=== PATIENT | male | born 1935 | race Caucasian/White ===

== ENCOUNTER 2017-04-08 09:13 | Outpatient (CLI) | payer MEDICARE ==
[2017-04-08 11:16] LABS: Hemoglobin 16.5 g/dL (14.0-18.0); Mean Corpuscular HGB CONC 35.1 g/dL (32.0-36.0); Mean Corpuscular Hemoglobin 34.6 pg (27.0-31.0); Mean Corpuscular Volume 98.6 fl (80.0-94.0); Mean Platelet Volume 6.8 fL (7.4-10.4); Platelet Count 171 thou/uL (130-400); Red Blood Cell (RBC) Count 4.77 mill/uL (4.70-6.10); White Blood Cell (WBC) Count 8.2 thou/uL (4.8-10.8)
[2017-04-08 11:20] LABS: Bilirubin Negative (Negative); Blood, Urine Negative (Negative); Clarity CLEAR (Clear); Glucose, Urine (Dipstick) Negative (Negative); Leukocyte Negative (Negative); Nitrite Negative (Negative); Protein, Urine (Dipstick) Negative (Neg-Trace); Specific Gravity, Urine 1.021 (1.002-1.036); Urobilinogen 0.2 mg/dL (0.2-1.0)
[2017-04-08 11:22] LABS: INR-International Normal Ratio 1.1; PTT 28.6 SEC (22.9-36.1); Prothrombin Time 14.2 SEC (12.0-14.7)
[2017-04-08 11:25] LABS: Anion Gap 16 mmol/L (10-20); BUN (Urea Nitrogen) 34 mg/dL (8.4-25.7); Bacteria/HPF None Seen HPF (None Seen); Calc. Creatinine Clearance 0 mL/min (70-130); Calcium 9.8 mg/dL (7.8-10.44); Carbon Dioxide 27 mmol/L (23-31); Chloride 104 mmol/L (98-107); Estimated GFR-MDRD 53; Glucose 117 mg/dL (83-110); Hyaline Casts/LPF 0-3 HYALINE CAST LPF (0-3 Hyaline); Potassium 4.1 mmol/L (3.5-5.1); RBC/HPF 0-3 HPF (0-3); Sodium 143 mmol/L (136-145); Squamous Epithelial None Seen HPF (0-3); WBC/HPF None Seen HPF (0-3)
--- NOTE | 2017-04-10 00:48 | EKG ---
Test Reason : Blood Pressure : / mmHG Vent. Rate : 054 BPM Atrial Rate : 054 BPM P-R Int : 174 ms QRS Dur : 108 ms QT Int : 450 ms P-R-T Axes : 059 066 003 degrees QTc Int : 426 ms Sinus bradycardia Anteroseptal infarct , age undetermined Abnormal ECG No previous ECGs available Confirmed by LUCAS EMMANUEL, DR. Fields ([id number]) on 04/10/2017 12:48:20 AM Referred By: PASTOR Confirmed By:DR. Diamond ZAVALA MD
== END 2017-04-08 09:14 | disposition home or self-care (01) ==
LOC: LABBT 09:13
PROVIDERS: ATTEND Urology
DX: Z01.818 Encounter for other preprocedural examination (principal); N40.1 Benign prostatic hyperplasia with lower urinary tract symptoms
CPT/HCPCS: 80048; 81001; 85027; 85610; 85730; 86850; 86900; 86901; 87086; 93005; 93010

== ENCOUNTER 2017-04-15 10:59 | Observation (INO) | payer MEDICARE ==
[2017-04-08 09:34] VITALS: BMI 30.2
[2017-04-15] MEDS ORDERED: Levofloxacin 500 mg/D5W 100 ml Premix Bag ONE (11:53)
[2017-04-15] MEDS ORDERED: Ondansetron HCl/PF 4 MG/2 ML Vial ONE (13:02)
[2017-04-15] MEDS ORDERED: Lidocaine 1% PF 5 ML VIAL ONE (13:02)
[2017-04-15] MEDS ORDERED: PROPOFOL 200 MG/20 ML VIAL ONE (13:02)
[2017-04-15] MEDS ORDERED: Glycopyrrolate 0.2 MG/ML 5 ML SYRINGE ONE (13:02)
[2017-04-15] MEDS ORDERED: PHENYLEPHRINE-NS 100 MCG/ML 10 ML SYRINGE ONE (13:02)
[2017-04-15] MEDS ORDERED: Dexamethasone 20 MG/5 ML VIAL ONE (13:02)
[2017-04-15] MEDS ORDERED: ePHEDrine/0.9% NaCl/PF SYRINGE 50 mg/10 ml ONE (13:02)
[2017-04-15] MEDS ORDERED: Fentanyl 100 MCG/2 ML VIAL ONE (13:33)
--- NOTE | 2017-04-15 15:44 | OP ---
DATE OF PROCEDURE: 04/15/2017 SERVICE: Urology. SURGEON: Jacoby Del Real M.D. PREOPERATIVE DIAGNOSIS: Benign prostatic hypertrophy. POSTOPERATIVE DIAGNOSIS: Benign prostatic hypertrophy. PROCEDURE PERFORMED: Transurethral resection of the prostate. INDICATIONS FOR PROCEDURE: Mr. Eddy is a 81-year-old white male who comes in to see me originally for significant urinary complaints. He is on Flomax and has tried other medications without signific ant improvement in his urinary symptoms. He does not wish to be a medication any longer. He opted f or a TURP and had an unusual lesion within his prostate, which was noted on preoperative cystoscopy. I recommended resection of this lesion along with opening up of his prostate. Risks and benefits of the surgery were discussed and he agreed to proceed forward. DESCRIPTION OF PROCEDURE: After identification of armband and verification of consent, the patient w as brought back to the operating room where he underwent general anesthesia with an LMA. He was then placed in dorsal lithotomy position, prepped and draped in usual sterile fashion. After appropriate timeout, a 26-Kittitian visual obturator resectoscope sheath was placed into the urethra after dilation of the urethral meatus with Alex sounds, this was passed with ease to the level of the prostate where an usual region was noted. This was bypassed until entry into the bladder was obtained. Ther e was a large median intravesical lobe. There visual obturator was switched out for the bipolar rese ctoscope loop. Initial resection was carried out on the lesion which was in the distal right side of the prostate. This was resected and sent off separately from the remainder of the specimen for sepa rate analysis. The remainder of the prostate was resected down using the bipolar prostate loop circu mferentially to remove the entire median lobe and all circumferentially around the prostate to the le zoey of the verumontanum. The prostate was adequately opened up with relaxing incisions at 5 and 7 o' clock the bladder neck. Both ureteral orifices were identified at the beginning and the end of the c ase and found to be patent. Meticulous hemostasis was performed with the coag function on the bipola r cautery and all the prostate chips were evacuated with Ellik evacuator and with the resectoscope ma nually. Upon final inspection, the vast majority bleeding was controlled and the prostate was wide. All prostate chips have been removed. The resectoscope was then removed leaving the bladder full. A 22-Kittitian three-way Tripathi catheter was placed through the urethra back into the bladder and 30 mL o f sterile water placed in the balloon. The bladder was irrigated to clear and CBI initiated. The maryuri alford had a StatLock fixed with his continuous bladder irrigation on his catheter and was awakened an d taken to PACU for recovery in stable condition. COMPLICATIONS: None. ESTIMATED BLOOD LOSS: Minimal. RETAINED TUBES AND DRAINS: A 22-Kittitian 3-way Tripathi catheter on CBI. SPECIMENS: Prostate with unusual lesion along with the prostate chips. DISPOSITION: The patient will be kept in the hospital overnight monitored with CBI. He will be disc harged in the morning assuming he has minimal hematuria and adequately is able to void.
[2017-04-15 17:19] LABS: #Basophils 0.1 thou/uL (0.0-0.2); #Eosinphils 0.2 thou/uL (0.0-0.7); #Lymphocytes 1.1 thou/uL (1.20-3.40); #Monocytes 0.4 thou/uL (0.11-0.59); #Neutrophils 5.8 thou/uL (1.40-6.50); %Basophils 0.7 % (0.0-1.0); %Eosinophils 3.1 % (0.0-10.0); %Lymphocytes 14.7 % (21.0-51.0); %Monocytes 5.6 % (0.0-10.0); %Neutrophils 75.9 % (42.0-75.0); Hemoglobin 15.6 g/dL (14.0-18.0); Mean Corpuscular HGB CONC 33.4 g/dL (32.0-36.0); Mean Corpuscular Hemoglobin 32.9 pg (27.0-31.0); Mean Corpuscular Volume 98.8 fl (80.0-94.0); Mean Platelet Volume 6.5 fL (7.4-10.4); Platelet Count 157 thou/uL (130-400); Red Blood Cell (RBC) Count 4.74 mill/uL (4.70-6.10); White Blood Cell (WBC) Count 7.6 thou/uL (4.8-10.8)
[2017-04-15 17:39] LABS: Anion Gap 15 mmol/L (10-20); BUN (Urea Nitrogen) 29 mg/dL (8.4-25.7); Calc. Creatinine Clearance 0 mL/min (70-130); Calcium 8.9 mg/dL (7.8-10.44); Carbon Dioxide 24 mmol/L (23-31); Chloride 105 mmol/L (98-107); Estimated GFR-MDRD 59; Glucose 116 mg/dL (83-110); Potassium 3.6 mmol/L (3.5-5.1); Sodium 140 mmol/L (136-145)
[2017-04-15] MEDS ORDERED: Mag-Al 1200 mg/1200 mg/30 ML UDCUP PO PRN (19:12)
[2017-04-15] MEDS ORDERED: diphenhydrAMINE 25 MG CAP PO PRN (19:12)
[2017-04-15] MEDS ORDERED: HYDROcodone/Acetaminophen 5/325 mg Tablet PO PRN ×2 (19:13)
[2017-04-15] MEDS ORDERED: hydrALAZINE 20 MG/ML VIAL SLOW IVP PRN (19:13)
[2017-04-15] MEDS ORDERED: Hyoscyamine Sulfate SL 0.125 mg Tablet SL PRN (19:14)
[2017-04-15] MEDS ORDERED: Morphine 4 MG/ML Carpuject SLOW IVP PRN (19:17)
[2017-04-15] MEDS ORDERED: Morphine 4 MG/ML Carpuject IVP PRN (19:18)
[2017-04-15] MEDS ORDERED: Oxybutynin 5 MG TAB PO PRN (19:18)
[2017-04-15] MEDS ORDERED: Ondansetron HCl/PF 4 MG/2 ML Vial IVP PRN (19:18)
[2017-04-15] MEDS ORDERED: Morphine 5 MG/ML SYRINGE SLOW IVP PRN (19:30)
[2017-04-15] MEDS ORDERED: Morphine 5 MG/ML SYRINGE IVP PRN (19:30)
[2017-04-15] MEDS: Docusate 100 MG CAP PO SCH (21:48)
[2017-04-16] MEDS: Docusate 100 MG CAP PO SCH (08:41)
[2017-04-16 08:49] LABS: Hemoglobin 15.5 g/dL (14.0-18.0); Mean Corpuscular HGB CONC 33.7 g/dL (32.0-36.0); Mean Corpuscular Hemoglobin 33.5 pg (27.0-31.0); Mean Corpuscular Volume 99.4 fl (80.0-94.0); Mean Platelet Volume 7.4 fL (7.4-10.4); Platelet Count 167 thou/uL (130-400); RBC Distribution Width 12.1 % (11.5-14.5); Red Blood Cell (RBC) Count 4.62 mill/uL (4.70-6.10)
[2017-04-16] MEDS ORDERED: metFORMIN 500 MG TAB PO SCH (09:00)
[2017-04-16] MEDS ORDERED: Hydrochlorothiazide 25 MG TAB PO SCH (09:00)
[2017-04-16] MEDS ORDERED: Losartan 25 MG TAB PO SCH (09:00)
[2017-04-16] MEDS ORDERED: Allopurinol 100 MG TAB PO SCH (09:00)
[2017-04-16 09:10] LABS: Anion Gap 13 mmol/L (10-20); BUN (Urea Nitrogen) 29 mg/dL (8.4-25.7); Calc. Creatinine Clearance 70 mL/min (70-130); Calcium 9.1 mg/dL (7.8-10.44); Carbon Dioxide 24 mmol/L (23-31); Chloride 104 mmol/L (98-107); Estimated GFR-MDRD 63; Glucose 137 mg/dL (83-110); Potassium 4.4 mmol/L (3.5-5.1); Sodium 137 mmol/L (136-145)
--- NOTE | 2017-04-16 09:39 | PRG ---
DATE OF SERVICE: 04/16/2017 SUBJECTIVE: The patient is doing well, has no complaints, has no bladder spasms or pain. His CBI wa s held this morning: PHYSICAL EXAMINATION: VITAL SIGNS: Temperature 97.3, pulse 65, respirations 20, blood pressure 131/69, saturation 92% on r oom air. GENERAL: No apparent distress, communicative, alert. CARDIOVASCULAR: Regular rate and rhythm. CHEST: No increased work of breathing. ABDOMEN: Soft, nontender, nondistended. GENITOURINARY: Tripathi catheter in place secured with a maroon, but translucent type urine in the cath eter without clots. CBI is currently off. EXTREMITIES: No clubbing, cyanosis or edema. LABORATORY DATA: Labs this morning; white count is 11, hemoglobin 15.5. Creatinine is 1.13. ASSESSMENT: A 81-year-old white male status post TURP for BPH, postop day #1 with mild hematuria. H e should be able to undergo a voiding trial and I will have his Tripathi discontinued. We will do seria l urine collection and so long as he is able to urinate adequately with reasonable amounts of hematur ia he should be able to be discharged home later today. PLAN: 1. Discontinue Tripathi. 2. Serial urine collections. 3. Plenty of fluids p.o. 4. Disposition pending voiding trial and hematuria evaluation.
[2017-04-16 12:54] VITALS: BP 145/73; TEMP 97.8
== END 2017-04-16 14:30 | disposition home or self-care (01) ==
LOC: SDC 10:59 → SJJU 15:37
PROVIDERS: ADMIT Urology; ATTEND Urology
PROC: 0VT08ZZ Resection of Prostate, Via Natural or Artificial Opening Endoscopic (ICD-10-PCS; principal; 2017-04-15)
DX: C61 Malignant neoplasm of prostate (principal); R73.03 Prediabetes; I10 Essential (primary) hypertension; M10.9 Gout, unspecified; M19.90 Unspecified osteoarthritis, unspecified site; J30.2 Other seasonal allergic rhinitis; Z79.84 Long term (current) use of oral hypoglycemic drugs; Z79.899 Other long term (current) drug therapy; Z87.891 Personal history of nicotine dependence
CPT/HCPCS: 52601; 80048 ×2; 85025; 85027; 88305; G0378; 36415; J0131; J1100; J1956; J2001; J2405; J2704; J3010

== ENCOUNTER 2017-06-11 09:18 | Outpatient (CLI) | payer MEDICARE ==
--- NOTE | 2017-06-11 14:47 | NM ---
WHOLE BODY BONE SCAN: Date: 06/11/17 HISTORY: Malignant neoplasm of prostate gland. RADIOPHARMACEUTICAL: 32 mCi technetium-99m labeled MDP, IV. VIEWS OBTAINED: Anterior posterior whole body. FINDINGS: There is what appears to be moderate to severe right hydronephrosis with retention of radiotracer wit hin the right renal collecting system and right renal pelvis with prominent dilatation of the right r enal pelvis. No uptake is seen within the right ureter. Normal activity is seen in the left kidney. There is increased uptake seen in the sternomanubrial joints and at each wrist, likely related to deg enerative changes. There is a focus of increased uptake seen within the left mandible, which could be related to periodo ntal disease. Focus of eccentric uptake is seen at the left aspect of the T12 vertebral body at the T 11-12 level, as well as right lateral aspect of the upper thoracic spine, which could also be related to degenerative changes. There is increased uptake overlying the left lower extremity likely related to urine contamination as no abnormal uptake is seen on posterior imaging. IMPRESSION: 1. Moderate to severe right hydronephrosis with prominent dilatation of the right renal pelvis. No a ctivity is seen in the right ureter and findings could be related to UPJ type obstruction. However, a dditional imaging would be helpful for further evaluation. 2. Degenerative changes as described above. 3. Focus of increased uptake within the left mandible, which could be related to periodontal disease . 4. No scintigraphic findings to suggest osseous metastatic disease. 5. Findings discussed with Dr. Del Real on 06/11/17 at 1603 hours. POS: [facility]
== END 2017-06-11 09:19 | disposition home or self-care (01) ==
LOC: NM 09:18
PROVIDERS: ATTEND Urology
DX: C61 Malignant neoplasm of prostate (principal); N13.30 Unspecified hydronephrosis; N28.89 Other specified disorders of kidney and ureter; M47.894 Other spondylosis, thoracic region
CPT/HCPCS: 78306; A9503

== ENCOUNTER 2017-06-12 09:00 | Outpatient (CLI) | payer MEDICARE ==
--- NOTE | 2017-06-12 18:25 | MRI ---
MR OF THE PELVIS WITH AND WITHOUT CONTRAST: 06/12/17 INDICATION: History of prostate cancer and status prostatectomy on 04/15/17. TECHNIQUE: Multiplanar and multisequence MR images were obtained of the pelvis utilizing prostate cancer protoco l. 20 mL of Multihance was utilized or the exam. No comparisons are available. FINDINGS: There is postprocedural change most consistent with a transurethral partial prostatectomy. There is a large central defect within the central gland of the prostate. The prostate gland measures 5.2 x 4.2 x 4.7 cm for a total prostatic volume of 64.7 mL. There is a 2 cm lenticular T2 hypointense, ADC hypointense lesion abutting the left mid gland on imag e 20 of series 5 extending along the posterolateral aspect of the left mid gland and left gland apex with abnormal enhancement suspicious for malignancy. Component also extends cephalad to the mid to la teral aspect of the left prostatic base. There is left sided neurovascular involvement. There is a 3 cm lenticular T2 hypointense lesion with suggested areas of restricted diffusion and abn ormal enhancement involving the right anterior medial aspect of the central zone, just anterior and l ateral to the TURP defect on image 24 of series 5 suspicious for a transitional zone malignancy. Small amount of hemorrhage is seen within the lower aspect of the left mid prostatic apex. No pathologically enlarged lymph nodes are evident. There are mildly prominent lymph nodes seen along the external iliac vasculature bilaterally measuring 8 mm. No definite bone marrow signal abnormalit y is evident. There is scattered colonic diverticula. There is wall thickening involving the bladder which may be related to chronic bladder outlet obstruction. There is scattered degenerative changes. IMPRESSION: 1. PI-RADS category 5 - very high (clinical significant cancer is highly likely to be present). 2. There are suspicious large lesions seen within the left peripheral zone from the base through the left apex with left sided neurovascular involvement. There is a large lenticular transitional z one lesion seen within the anteromedial aspect of the right mid gland suspicious for malignancy. POS: [facility]
== END 2017-06-12 09:01 | disposition home or self-care (01) ==
LOC: TBSIIMAG 09:00
PROVIDERS: ATTEND Urology
DX: C61 Malignant neoplasm of prostate (principal); N42.89 Other specified disorders of prostate
CPT/HCPCS: 72197; 82565

== ENCOUNTER 2017-07-09 07:41 | Outpatient (CLI) | payer MEDICARE | END 2017-07-09 07:42 | disposition home or self-care (01) | LOC: BICCT 07:41 | PROVIDERS: ATTEND Urology | DX: N13.30 Unspecified hydronephrosis (principal); N28.89 Other specified disorders of kidney and ureter; K80.20 Calculus of gallbladder without cholecystitis without obstruction; K57.30 Diverticulosis of large intestine without perforation or abscess without bleeding | CPT/HCPCS: 74176 ==

== ENCOUNTER 2018-09-03 08:11 | Outpatient (CLI) | payer MEDICARE ==
--- NOTE | 2018-09-03 10:42 | CT ---
CT ABDOMEN AND PELVIS WITH AND WITHOUT IV CONTRAST: Date: 09/03/18 HISTORY: Neoplasm of prostate, elevated PSA. COMPARISON: 07/09/17 and 09/07/15. FINDINGS: The lung bases are unremarkable. Calcified gallstones are again seen. A few tiny low density lesions in the liver are stable. 7 mm well-circumscribed low density lesion in the anterior aspect of the spl een is better visualized compared to exam of 07/09/17. The pancreas and adrenal glands are normal. No calculi are seen in the kidneys, ureters, or the urinary bladder. A patulous and dilated right olinda al pelvis is stable. No hydronephrosis is seen on either side. Cortical cysts in the right kidney and parapelvic cysts in the left kidney are stable. The prostate is enlarged. No free air, free fluid, or lymphadenopathy is identified in the abdomen or pelvis. There are vascula r calcifications without evidence of aneurysmal dilatation of the abdominal aorta. There is colonic d iverticulosis without evidence of diverticulitis. Degenerative changes are present in the spine and h ip joints. No osteoblastic or osteolytic lesions are seen. IMPRESSION: 1. No evidence of metastatic disease. 2. Cholelithiasis. 3. Bilateral renal cysts. 4. Stable dilated and patulous right renal pelvis without evidence of high grade obstruction. 5. Colonic diverticulosis. 6. Prostatic enlargement. 7. Stable tiny liver lesions. POS: [facility]
--- NOTE | 2018-09-03 13:26 | NM ---
BONE SCAN: Date: 09/03/18 Patient was given 30 mCi of technetium labeled MDP IV. Whole body skeletal images obtained. INDICATION: Prostate cancer. Comparison made to bone scan of 06/11/17. FINDINGS: There is new intense activity in the left ilium near the SI joint. This is a suspicious finding. There is increasing activity in the right hip when compared to the prior study. This may be degenerat hernán. Increased activity was seen at the hip on prior study, although the activity is more pronounced today. Degenerative spine changes appear stable from prior exam. Focus of activity in the left mandible is a gain noted. Right hydronephrosis again noted, similar to the prior exam. IMPRESSION: 1. New intense activity in the left ilium near the SI joint, which is a suspicious finding. 2. Increasing activity in the right hip when compared to prior exam. This may be degenerative. Recommend MRI of pelvis. This could evaluate both hip and ilium to assess for metastatic lesion. POS: [facility]
== END 2018-09-03 08:12 | disposition home or self-care (01) ==
LOC: NM 08:11
PROVIDERS: ATTEND Urology
DX: C61 Malignant neoplasm of prostate (principal); K80.20 Calculus of gallbladder without cholecystitis without obstruction; N28.1 Cyst of kidney, acquired; K57.30 Diverticulosis of large intestine without perforation or abscess without bleeding; N40.0 Benign prostatic hyperplasia without lower urinary tract symptoms; N28.89 Other specified disorders of kidney and ureter; K76.9 Liver disease, unspecified; R94.8 Abnormal results of function studies of other organs and systems
CPT/HCPCS: 74178; 78306; 82565; A9503

== ENCOUNTER 2018-10-13 14:39 | Outpatient (CLI) | payer MEDICARE ==
[~2018-10-13 14:39] MED LIST: Gadobenate Dimeglumine 529 MG/1 ML (20ML VIAL) ONE
--- NOTE | 2018-10-13 16:26 | MRI ---
MRI Pelvis W WO Con History: Evaluate pelvic metastatic disease Comparison: Bone scan September 03, 2018. Findings: Correspond to nuclear medicine bone scan study is a mass replacing the left posterior ilium medullary cavity measuring 2.3 x 4.1 by approximately 4.5 cm. This suggests craniad to the SI joint. Degenerative changes of both hips with subcortical cyst formation small right hip joint effusion. Modic type II endplate changes lower lumbar spine. The T2 signal of the throughout the right acetabul um is felt to likely be degenerative in nature and stress related the T1 marrow signal is the most part maintained. Abnormal left internal iliac adenopathy. Impression: 1. Corresponding to the bone scan findings is a metastatic focus posterior left ilium just craniad to the SI joint. 2. Advanced degenerative changes of the right hip correspond to the bone scan finding. 3. Markedly distended right renal pelvis and proximal ureter. 4. Left internal iliac adenopathy and superior rectal lymph nodes likely metastatic.
== END 2018-10-13 14:40 | disposition home or self-care (01) ==
LOC: TBSIIMAG 14:39
PROVIDERS: ATTEND Internal Medicine Hematology & Oncology
DX: C61 Malignant neoplasm of prostate (principal); M16.11 Unilateral primary osteoarthritis, right hip; R59.0 Localized enlarged lymph nodes; N28.89 Other specified disorders of kidney and ureter
CPT/HCPCS: 72197; A9577

== ENCOUNTER 2019-06-14 17:20 | Outpatient (CLI) | payer MEDICARE ==
--- NOTE | 2019-06-14 17:48 | ULT ---
ULTRASOUND DOPPLER DUPLEX VENOUS LEFT LOWER EXTREMITY: DATE: 06/14/2019 HISTORY: 83-year-old male with left lower extremity pain and edema TECHNIQUE: Grayscale, color-flow, and spectral analysis, of major veins of left lower extremity. FINDINGS: There is demonstration of blood flow with normal compressibility, of the left common femoral, profund a femoral, greater saphenous, femoral, popliteal, and posterior tibial, veins. IMPRESSION: Negative. No deep venous thrombosis of left lower extremity.
== END 2019-06-14 17:21 | disposition home or self-care (01) ==
LOC: ULT 17:20
PROVIDERS: ATTEND Nurse Practitioner Family
DX: R60.0 Localized edema (principal); M25.572 Pain in left ankle and joints of left foot

== ENCOUNTER 2019-09-28 20:44 | Observation (INO) | payer MEDICARE ==
--- NOTE | 2019-09-28 21:14 | CT ---
CT Brain WO Con: 09/28/2019 12:00 AM CLINICAL HISTORY: Concern for head injury; history of syncopal episode and possible fall. IMAGING TECHNIQUE: Multiple CT images were obtained of the brain without IV contrast. COMPARISON: None. FINDINGS: BRAIN: Evidence of acute infarct: None. Evidence of chronic ischemic change:There is [id number] chronic small vessel white matter ische sierra change. There is mild generalized cerebral atrophy. Evidence of intracranial hemorrhage: None. Evidence of midline shift: Third ventricle and septum pellucidum are midline. Ventricles: Normal. No hydrocephalus. SKULL: Intact. VISUALIZED PARANASAL SINUSES: Mild mucosal thickening in the ethmoid air cells and right maxillary s inus. Remaining paranasal sinuses appear clear. MASTOID AIR CELLS: Clear. EXTRACRANIAL SOFT TISSUES: Normal. IMPRESSION: No acute intracranial abnormality.
[2019-09-28 21:34] LABS: #Basophils 0.1 thou/uL (0.0-0.2); #Eosinphils 0.3 thou/uL (0.0-0.7); #Lymphocytes 1.3 thou/uL (1.20-3.40); #Monocytes 0.7 thou/uL (0.11-0.59); #Neutrophils 3.2 thou/uL (1.40-6.50); %Basophils 1.1 % (0.0-1.0); %Monocytes 11.8 % (0.0-10.0); %Neutrophils 58.1 % (42.0-75.0); Hemoglobin 14.6 g/dL (14.0-18.0); Mean Corpuscular HGB CONC 35.1 g/dL (32.0-36.0); Mean Corpuscular Hemoglobin 35.1 pg (27.0-31.0); Mean Platelet Volume 6.6 fL (7.4-10.4); Platelet Count 155 thou/uL (130-400); Red Blood Cell (RBC) Count 4.17 mill/uL (4.70-6.10); White Blood Cell (WBC) Count 5.6 thou/uL (4.8-10.8)
[2019-09-28 21:55] LABS: ALT (SGPT) 7 U/L (8-55); AST (SGOT) 13 U/L (5-34); Albumin 3.8 g/dL (3.4-4.8); Alkaline Phosphatase 67 U/L (40-110); Anion Gap 18 mmol/L (10-20); BUN (Urea Nitrogen) 15 mg/dL (8.4-25.7); Bilirubin, Total 0.4 mg/dL (0.2-1.2); Calc. Creatinine Clearance 0 mL/min (70-130); Calcium 9.1 mg/dL (7.8-10.44); Carbon Dioxide 22 mmol/L (23-31); Chloride 102 mmol/L (98-107); Estimated GFR-MDRD 74; Glucose 111 mg/dL (83-110); Potassium 3.1 mmol/L (3.5-5.1); Protein, Total 6.8 g/dL (5.8-8.1); Sodium 139 mmol/L (136-145)
[2019-09-28 21:56] LABS: Acetaminophen Less than 6.0 mcg/mL (10.0-30.0); Alcohol 150 mg/dL (Less than 10); CK (CPK) 54 U/L (30-200); Salicylate Less than 8.0 mg/dL (15.0-30.0)
--- NOTE | 2019-09-28 21:57 | RAD ---
Chest AP view INDICATION: Syncopal episode and chest pain COMPARISON: PA and lateral the chest dated May 16, 2015 FINDINGS: Lungs: The lungs are clear Cardiac silhouette: The cardiomediastinal silhouette appears within normal limits. Pulmonary vasculature: Normal Pleural spaces: No pleural effusion or pneumothorax is demonstrated. Upper abdomen: No abnormality seen. Osseous structures: No acute osseous abnormality. Additional findings: None. IMPRESSION: No acute cardiopulmonary abnormality.
[2019-09-28] MEDS ORDERED: Aspirin Chewable 81 MG TAB ONE (23:14)
[2019-09-28] MEDS ORDERED: Senokot S 8.6-50 MG TAB PO PRN (23:44)
[2019-09-28] MEDS ORDERED: Acetaminophen 325 MG TAB PO PRN (23:44)
[2019-09-28] MEDS ORDERED: Calcium Carbonate 500 MG ChewTAB PO PRN (23:44)
[2019-09-28] MEDS ORDERED: Ondansetron ODT 4 MG TAB PO PRN (23:44)
[2019-09-28] MEDS ORDERED: Ondansetron PF 4 MG/2 ML Vial IVP PRN (23:44)
[2019-09-28] MEDS ORDERED: Lorazepam 2 MG/ML VIAL SLOW IVP PRN (23:46)
[2019-09-28] MEDS ORDERED: Dextrose 5% in Water 1,000 ML IV PRN (23:54)
[2019-09-28] MEDS ORDERED: HumaLOG 300 UNITS/3 ML VIAL SC PRN ×2 (23:54)
[2019-09-28] MEDS ORDERED: Dextrose 50% Abboject 50 ML SYRINGE SLOW IVP PRN (23:54)
[2019-09-28] MEDS ORDERED: Pantoprazole 40 MG VIAL IVP SCH (23:59)
[2019-09-28] MEDS ORDERED: chlordiazePOXIDE HCl 25 MG CAP PO SCH (23:59)
[2019-09-28] MEDS ORDERED: Potassium Chloride 20 MEQ TAB PO SCH (23:59)
[2019-09-29 00:19] LABS: Magnesium 1.8 mg/dL (1.6-2.6); Phosphorus 3.5 mg/dL (2.3-4.7)
[2019-09-29] MEDS ORDERED: Magnesium 2 GM/50 ML 2 GM in Premix Bag 1 BAG IVPB SCH (00:30)
[2019-09-29] MEDS ORDERED: Thiamine HCl 200 MG/2 ML VIAL IM SCH (00:30)
--- NOTE | 2019-09-29 00:49 | HP ---
PRIMARY CARE PHYSICIAN: Dr. Lilli Del Real. CHIEF COMPLAINT: Syncope. HISTORY OF PRESENT ILLNESS: Patient is an 83-year-old male, with a past medical history significant for hypertension, borderline diabetes, and alcohol abuse, who presents to the ER for the above complaint. The patient was apparently found down at his home by his son, so his son called the EMS. When EMS arrived, the patient was apparently up in his chair, alert on arrival. He does not know if he fell down or if he hit his head. He does report that he has been falling frequently stating "my leg sometimes does give out on me." He also reports daily alcohol intake of approximately 12 to 24 ounces of beer per day. However, this evening, he had at least three shots of jessy, which he says is abnormal for him. The patient denies any chest pain, heart palpitations, or any swelling to his lower extremities. He denies any shortness of breath or recent cough. He denies any recent fever or chills. He denies any headache or neck pain or focal deficits. He denies any abdominal pain, nausea, vomiting, or diarrhea. He denies any dysuria. Per EMS report, the patient was generally weak, needing a little bit assistance to stand and he had some slurring of his speech. In the ER, the patient presented with stable vital signs. Afebrile, normal blood pressure, normal heart rate, normal respirations, and normal SpO2 sat. CT of the brain was negative for any acute process. Chest x-ray was negative for any acute process. Initial troponin 0.013. EKG showed normal sinus rhythm with some T-wave inversions in V5 and V6. Patient had alcohol level of 150, potassium of 3.1, and WBCs of 5.6. He was given aspirin 243mg and was admitted to the floor. PAST MEDICAL HISTORY: 1. Hypertension. 2. Prostate cancer. 3. Borderline diabetes. 4. Gout. SURGICAL HISTORY: Prostatectomy. SOCIAL HISTORY: The patient lives alone at home. He denies any illicit drug use or smoking. He admits to drinking approximately 12 to 24 ounces of beer daily. He works at [employer] in [employer] He ambulates without any assistive devices. FAMILY HISTORY: Noncontributory to this case. ALLERGIES: NO KNOWN DRUG ALLERGIES. HOME MEDICATIONS: Patient is unable to confirm home medications. REVIEW OF SYSTEMS: All review of systems are negative unless otherwise stated in the HPI. PHYSICAL EXAMINATION: VITAL SIGNS: Temperature 98.4, blood pressure 118/63, pulse 89, respirations 16 , and 96% on room air. 0/10 pain. CONSTITUTIONAL: Patient is alert and oriented to person, place, and time. No acute distress. Appears comfortable in bed upon examination. HEENT: Head, atraumatic and normocephalic. Eyes, PERRLA. Extraocular muscles intact. Sclerae nonicteric. ENT, nares patent bilaterally. Oropharynx is clear. Uvula midline. Moist mucous membranes. No oral lesions. NECK: Full range of motion. No cervical spine tenderness. Trachea is midline. No JVD. No cervical adenopathy. RESPIRATORY: Respirations are even and nonlabored. Clear to auscultation. No rhonchi, wheezes, or rales. CARDIOVASCULAR: S1, S2 appreciated. No murmurs, rubs, or gallops. ABDOMEN: Soft, nontender, and mildly distended. Active bowel sounds. No guarding. No rigidity. No rebound tenderness. Negative Rovsing sign. Negative Rodriguez sign. No abdominal bruit auscultated. BACK: Full range of motion. No central spinal tenderness. No CVA tenderness. UPPER EXTREMITIES: Bilateral upper extremities, full range of motion. Normal strength. Normal sensation. Palpable radial pulses. LOWER EXTREMITIES: Full range of motion. Normal strength. Normal sensation. Palpable pedal pulses. No swelling. NEUROLOGIC: Patient is alert and oriented to person, place, and time. He follows commands. He moves all extremities well. No focal deficits. Normal gait. Cranial nerves 2 through 12 are intact. PSYCH: Patient has normal affect, alert, oriented to person, place, and time. LABORATORIES AND DIAGNOSTICS: CT brain, negative for any acute process. Chest x-ray negative for any acute process. EKG, normal sinus rhythm, T-wave inversions in V5 and V6. Initial troponin 0.013. ETOH of 150. Sodium 139, potassium 3.1, chloride 102, CO2 is 22, BUN 15, creatinine 0.97, glucose 111, T bili 0.4, AST 13, ALT 7, and alk phos 67. WBCs 5.6, hemoglobin 14.6, hematocrit 41.7, and platelets 155. IMPRESSION AND PLAN: 1. Syncope. We will admit the patient to telemetry for observation status. Expected length of stay less than two midnights. Upon examination, patient is alert and oriented to person, place, and time. No focal deficits. CT brain negative. Chest x-ray negative. Alcohol 150. Troponin 0.013. EKG normal sinus rhythm with T-wave inversions in V5 and V6. We will trend troponins. We will check TSH, BNP, and fasting lipid. We will order a carotid Doppler ultrasound, echocardiogram. We will check orthostatic vital signs. 2. Alcohol intoxication. Patient reports drinking three shots of jessy and admits to drinking 12 to 24 ounces of beers daily. We will start ASE protocol. We will start Librium scheduled. We will check a mag and phos level. We will check UA and urine drug screen. We will check a B12, and folate level. We will add Ativan p.r.n. for withdrawals. We will start Protonix PPI. 3. Abnormal EKG. Patient presented with normal sinus rhythm with T-wave inversions in V5, V6. We will color television console monitor, check electrolytes. We will get an echocardiogram. 4. Hypokalemia. Patient presented with mild hypokalemia of 3.1. We will give 40 mEq of potassium. Recheck level in a.m. We will also check magnesium level. 5. Hypertension. Patient presented with normal blood pressure. Patient takes multiple antihypertensive medications at home, atenolol and losartan, but he does not know the home dose. Once reconciled, we will restart as vital signs permit. 6. Gout. Patient takes allopurinol, unknown dose. 7. SCDs for deep venous thrombosis prophylaxis. Protonix for gastrointestinal prophylaxis. Patient is a full code. 8. Discussed the case with Dr. Liu. Job ID: [id number] MTDD
[2019-09-29] MEDS: Sodium Chloride 0.9% 1,000 ML IV SCH ×2 (01:35→12:37)
[2019-09-29 01:56] VITALS: BMI 28.3
[2019-09-29 04:09] LABS: #Basophils 0.1 thou/uL (0.0-0.2); #Eosinphils 0.2 thou/uL (0.0-0.7); #Lymphocytes 1.4 thou/uL (1.20-3.40); #Monocytes 0.5 thou/uL (0.11-0.59); #Neutrophils 2.4 thou/uL (1.40-6.50); %Basophils 1.7 % (0.0-1.0); %Eosinophils 5.1 % (0.0-10.0); %Lymphocytes 29.7 % (21.0-51.0); %Monocytes 10.9 % (0.0-10.0); %Neutrophils 52.7 % (42.0-75.0); Hemoglobin 14.7 g/dL (14.0-18.0); Mean Corpuscular HGB CONC 35.2 g/dL (32.0-36.0); Mean Corpuscular Hemoglobin 35.2 pg (27.0-31.0); Mean Platelet Volume 6.7 fL (7.4-10.4); Platelet Count 145 thou/uL (130-400); RBC Distribution Width 12.1 % (11.5-14.5); Red Blood Cell (RBC) Count 4.18 mill/uL (4.70-6.10); White Blood Cell (WBC) Count 4.6 thou/uL (4.8-10.8)
[2019-09-29 04:20] LABS: Anion Gap 16 mmol/L (10-20); BUN (Urea Nitrogen) 14 mg/dL (8.4-25.7); Calc. Creatinine Clearance 77 mL/min (70-130); Calcium 9.1 mg/dL (7.8-10.44); Carbon Dioxide 24 mmol/L (23-31); Chloride 104 mmol/L (98-107); Estimated GFR-MDRD 81; Glucose 89 mg/dL (83-110); Potassium 3.7 mmol/L (3.5-5.1); Sodium 140 mmol/L (136-145)
[2019-09-29 07:44] LABS: Bilirubin Negative (Negative); Blood, Urine Negative (Negative); Clarity Clear (Clear); Glucose, Urine (Dipstick) Normal (Negative); Ketone, Urine Negative (Negative); Leukocyte Negative Leu/uL (Negative); Nitrite Negative (Negative); Protein, Urine (Dipstick) Negative (Neg-Trace); RBC/HPF 0-3 HPF (0-3); Specific Gravity, Urine 1.008 (1.002-1.036); Squamous Epithelial None Seen HPF (0-3); Urobilinogen Normal mg/dL (Less than 2); WBC/HPF 0-3 HPF (0-3)
--- NOTE | 2019-09-29 08:13 | ULT ---
BILATERAL CAROTID DUPLEX ULTRASOUND: HISTORY: Syncope TECHNIQUE: Grayscale, color-flow and spectral Doppler ultrasound imaging of the extracranial carotid artery syst ems was performed bilaterally. FINDINGS: Only minimal atherosclerotic plaque is seen in the carotid arteries bilaterally. There is no hemodynamically significant stenosis in the bilateral internal carotid arteries according to the peak systolic velocities and the ICA/CCA ratios. The peak systolic velocity in the right ICA measures 58.6 cm/s. The peak systolic velocity in the left ICA measures 80.9 cm/s. The right IC A/CCA ratio is 0.73, and the left ICA/CCA ratio is 0.88. Vertebral arteries: Antegrade flow is demonstrated in the vertebral arteries bilaterally. IMPRESSION: No hemodynamically significant stenosis in the bilateral internal carotid arteries.
[2019-09-29] MEDS ORDERED: Lorazepam 0.5 MG TAB PO PRN (08:14)
[2019-09-29 08:15] LABS: Bacteria/HPF 1+ HPF (None Seen)
[2019-09-29 08:17] LABS: Amphetamine Not Detected (NotDetected); Cocaine Metabolite Screen Not Detected (NotDetected); Medtox Reader # READER 1; Methamphetamine Not Detected (NotDetected); Opiate Screen Not Detected (NotDetected); Phencyclidine (PCP) Not Detected (NotDetected); THC/Cannabinoid Screen Not Detected (NotDetected)
[2019-09-29 08:18] LABS: Barbiturates Screen Not Detected (NotDetected); Benzodiazepine Screen Not Detected (NotDetected); Medtox Control Line Valid? VALID (VALID); Methadone Not Detected (NotDetected); Oxycodone Screen Not Detected (NotDetected); Tricyclic Screen Not Detected (NotDetected)
[2019-09-29] MEDS ORDERED: chlordiazePOXIDE HCl 25 MG CAP PO SCH (09:00)
[2019-09-29] MEDS ORDERED: Multivit, Chewable SF 1 TAB PO SCH (09:00)
[2019-09-29] MEDS ORDERED: Folic Acid 1 MG TAB PO SCH (09:00)
[2019-09-29] MEDS ORDERED: Thiamine 100 MG TAB PO SCH (09:00)
--- NOTE | 2019-09-29 15:13 | PDOC.HOSPP ---
- Subjective Encounter Date: 09/29/19 Encounter Time: 14:45 Subjective: Patient seen and examined for Syncope. No new focal deficits, CP or syncope. No new complaints. No overnight events - Objective Vital Signs & Weight: Vital Signs (12 hours) Temp Pulse Resp BP BP BP Pulse Ox 09/29/19 11:30 97.6 F 52 L 16 147/67 H 97 09/29/19 09:45 97.7 F 54 L 18 159/71 H 178/72 H 165/68 H 98 09/29/19 03:26 98.6 F 52 L 18 157/79 H 96 Weight Weight 186 lb 12.8 oz I&O: 09/28/19 09/29/19 09/30/19 06:59 06:59 06:59 Intake Total 484 Balance 484 Result Diagrams: 09/29/19 03:50 09/29/19 03:50 Additional Labs: Accuchecks 09/29/19 11:01 POC Glucose 108 Radiology Reviewed by me: Yes (CXR - negative) EKG Reviewed by me: Yes (Tele SR/SB) Hospitalist ROS - Review of Systems Respiratory: denies: cough, dry, shortness of breath, hemoptysis, SOB with excertion, pleuritic pain, sputum, wheezing, other Cardiovascular: denies: chest pain, palpitations, orthopnea, paroxysmal noc. dyspnea, edema, light headedness, other Gastrointestinal: denies: nausea, vomiting, abdominal pain, diarrhea, constipation, melena, hematochezia, other - Medication Medications: Active Medications Generic Name Dose Route Start Last Admin Trade Name Lópezq PRN Reason Stop Dose Admin Folic Acid 1 mg 09/29/19 09:00 09/29/19 09:46 Folvite PO 1 mg DAILY JOHNNY Administration Sodium Chloride 1,000 mls @ 100 mls/hr 09/29/19 00:15 09/29/19 12:37 Normal Saline 0.9% IV 1,000 mls .Q10H JOHNNY Administration Pantoprazole Sodium 40 mg 09/29/19 09:00 09/29/19 09:46 Protonix PO 40 mg DAILY JOHNNY Administration Thiamine HCl 100 mg 09/29/19 09:00 09/29/19 09:46 Thiamine PO 100 mg DAILY JOHNNY Administration - Exam General Appearance: NAD Neck: supple, no JVD Heart: RRR, no gallops, no rubs, normal peripheral pulses Respiratory: no wheezes, no ronchi Gastrointestinal: soft, non-tender, non-distended, normal bowel sounds Extremities: no cyanosis, no clubbing, no edema Neurological: no new deficit Psychiatric: normal affect, A&O x 3 Hosp A/P - Plan DVT proph w/SCDs Syncope ?cardiogenic vs due to alcohol intoxication Toxic Metabolic Encephalopathy - resolved Sinus Bradycardia HTN DM2 Hypokalemia Gout h/o Prostate CA PLAN: Hold Betablockers due to bradycardia Await Echo Carotid - negative DC IVF Monitor for alcohol withdrawal Will benefit from event monitor Cont Thiamine/folic acid
[2019-09-29] MEDS ORDERED: traMADol HCl 50 MG TAB PO PRN (15:14)
[2019-09-29] MEDS ORDERED: Oxybutynin 5 MG TAB PO PRN (15:14)
[2019-09-29 16:15] VITALS: BP 161/67; TEMP 98.2
--- NOTE | 2019-09-29 20:58 | DIS ---
DATE OF ADMISSION: 09/28/2019 DATE OF DISCHARGE: 09/29/2019 DISCHARGE DISPOSITION: Home. FOLLOWUP: 1. Follow up with primary care physician, Dr. Boyd in 2 to 3 days. 2. Follow up with Cardiology, Dr. Lindsay in 2 weeks. 3. Basic metabolic profile after 1 week. 4. Primary care physician advised to follow. ALLERGIES: NO KNOWN DRUG ALLERGIES. DISCHARGE MEDICATION: 1. Thiamine. 2. Folic acid. 3. Multivitamin was added. 4. Atenolol was discontinued due to bradycardia. All other home medications were left unchanged. The patient was seen and examined on the day of discharge. Denies any new complaints. No chest pain, shortness of breath, palpitations reported. BRIEF HOSPITAL COURSE: The patient is an 83-year-old male with hypertension, diabetes mellitus type 2, and alcoholism presented to the hospital with a syncopal episode. His blood alcohol level was 150. His troponins were negative. The patient was monitored on the telemetry unit. Telemetry monitoring was consistent with sinus bradycardia. His echocardiogram showed ejection fraction of 55% to 60% with [id number] mitral regurgitation, [id number] tricuspid regurgitation. His carotid Doppler was negative for hemodynamically significant stenosis. His chest x-ray and brain CT scan was negative as well. The patient was evaluated by Cardiology, Dr. Lindsay, who will follow up Mr. Eddy as outpatient. Lifestyle modification including alcohol cessation was emphasized. FINAL DIAGNOSES: 1. Syncopal episode, suspected secondary to alcohol intoxication. 2. Sinus bradycardia. Atenolol has been discontinued. 3. Hypokalemia, replaced. 4. Hypertension. 5. Gout. 6. History of prostate cancer. 7. Diabetes mellitus type 2. 8. Toxic metabolic encephalopathy on admission secondary to alcohol intoxication, resolved. 9. The patient understands the above plan of care. Job ID: [id number]
--- NOTE | 2019-09-30 06:09 | CON ---
DATE OF CONSULTATION: 09/29/2019 REASON FOR CONSULTATION: Syncope. HISTORY OF PRESENT ILLNESS: Mr. Eddy is a very pleasant 83-year-old white gentleman, who comes to the hospital for a syncopal spell. He was apparently found down at his home by his son who called EMS. When they arrived, he was back up on his chair alert on arrival. On H and P, it says that he was unsure whether he had fallen down and hit his head or he had syncopized. On my evaluation, Mr. Eddy tells me that he is starting to remember what happened. He was at a friend's house and he came back home and then when he tried to get out of his car, he had had a few more drinks than he normally has and he feels that he fell down and could not get back up. When his son arrived, he helped him up and he was on the chair by the time EMS came. Mr. Eddy was admitted, ruled out with negative enzymes and an EKG that was fairly unremarkable. Echocardiogram was done as well, which shows no issues that would cause him to have syncopal spells. Aortic valve looks worn out but unremarkable. Cardiology has been consulted as during his hospital stay, his monitor has been in the bradycardic in the upper 40s to low 50s. He is completely asymptomatic with that level of heart rate and every time he gets up and walks around, he is able to increase his heart rate up to the 60s. PAST MEDICAL HISTORY: 1. Hypertension. 2. Prostate cancer. 3. Borderline diabetes. 4. Gout. SURGICAL HISTORY: Prostatectomy. SOCIAL HISTORY: Lives alone. No drug use. Drinks about 24 ounces of beer a day. The day of the event, he actually had the same 24 ounces plus several shots of bourbon. Works maintenance at [employer]. FAMILY HISTORY: Noncontributory. ALLERGIES: NO KNOWN DRUG ALLERGIES. OUTPATIENT MEDICATIONS: 1. Oxybutynin p.r.n. 2. Myrbetriq. 3. Enzalutamide. 4. Potassium chloride 10 mEq a day. 5. Metformin 500 mg a day. 6. Tylenol No. 3 p.r.n. 7. Hydrochlorothiazide 25 mg a day. 8. Allopurinol 100 mg a day. 9. Tramadol 50 mg p.r.n. 10. Losartan 100 mg a day. 11. Thiamine 100 mg a day. 12. Folic acid 1 mg a day. 13. Vitamin B12 1000 mcg. ALLERGIES: NO KNOWN DRUG ALLERGIES. REVIEW OF SYSTEMS: A 12-point review of systems was done and was all negative unless stated in the history of present illness or below. He states that he has been falling a lot more lately. PHYSICAL EXAMINATION: VITAL SIGNS: Temperature 97.6, pulse 52, respiratory rate 16, sat 97% on room air, blood pressure goes from 159/71 sitting to 178/72 standing, actually goes up. GENERAL: Awake, alert, oriented x3. No distress. HEENT: Normocephalic, atraumatic. NECK: Supple. LUNGS: Clear. CARDIOVASCULAR: S1 and S2. No S3 or S4. There is a grade 2/6 systolic murmur at the right upper sternal border. ABDOMEN: Soft. Positive bowel sounds. EXTREMITIES: No edema. SKIN: Warm and dry. LABORATORY DATA: Laboratory work was reviewed. White count of 5, hemoglobin of 14, hematocrit 41, platelet count of 155. Chemistry was completely normal. Troponin was completely negative x3. BNP was 81. Vitamin B12 level was normal. Folate level was normal. Glucose was normal. TSH was 2.6, which is also normal. UA was unremarkable. Toxicology was unremarkable except for a plasma alcohol of 150 on arrival. Carotid Doppler showed no significant stenosis. CT of the brain was unremarkable. Telemetry showed sinus bradycardia in the 50s. ASSESSMENT: 1. Sinus bradycardia, asymptomatic. 2. Syncopal spell. Likely related to alcohol use. 3. Alcohol abuse. 4. Hypertension. 5. Hypokalemia. PLAN: 1. Certainly, his episode of syncope versus falling is most likely related to his increase in alcohol use that same day. Would recommend to refrain from any further alcohol use. I counseled him on this as well. 2. Sinus bradycardia is asymptomatic and he has very good chronotropic competence as when he gets up and walks around, his heart rate goes up to the 70s to 80s. Would hold his atenolol or any AV eb blocking agents as this can only contribute to him getting more bradycardic and he may get symptomatic in this setting. 3. For his hypokalemia, he is on hydrochlorothiazide and potassium. We will follow up with him as an outpatient. We will decide on other therapies for his blood pressure depending on what his blood pressure is outpatient. 4. From the cardiac perspective, he may be discharged home. 5. We will try to set him up with once he follows up in the office in the next 2 to 3 weeks. Thank you for letting us to participate in the care of your patient. He may be discharged home. We will sign off. Please call with any questions. Job ID: [id number]
[2019-09-30] MEDS ORDERED: Allopurinol 100 MG TAB PO SCH (09:00)
[2019-09-30] MEDS ORDERED: Cyanocobalamin (Vitamin B-12) 1,000 MCG TAB PO SCH (09:00)
[2019-09-30] MEDS ORDERED: Hydrochlorothiazide 25 MG TAB PO SCH (09:00)
== END 2019-09-29 18:50 | disposition home or self-care (01) ==
LOC: ERS 20:44 → 2NO 23:18
PROVIDERS: ADMIT Internal Medicine; ATTEND Internal Medicine
DX: R55 Syncope and collapse (principal); R00.1 Bradycardia, unspecified; E87.6 Hypokalemia; I10 Essential (primary) hypertension; R94.31 Abnormal electrocardiogram [ECG] [EKG]; M10.9 Gout, unspecified; E11.9 Type 2 diabetes mellitus without complications; F10.220 Alcohol dependence with intoxication, uncomplicated; G92 Toxic encephalopathy; I08.1 Rheumatic disorders of both mitral and tricuspid valves; Z79.84 Long term (current) use of oral hypoglycemic drugs; Z79.899 Other long term (current) drug therapy; Y90.6 Blood alcohol level of 120-199 mg/100 ml
CPT/HCPCS: 70450; 71045; 80048; 80306; 80307; 81001; 82550; 82607; 82746; 82962; 83735; 83880; 84100; 84484 ×3; 85025; 93005; 93306; 93880; 96361; 96365; 96375; 97139; 99285; G0378 ×2; 36415; 36416; 80053; 84443; C9113; J3411; J3475

== ENCOUNTER 2019-12-12 14:12 | Emergency (ER) | payer MEDICARE | END 2019-12-12 15:30 | disposition home or self-care (01) | LOC: ERS 14:12 | DX: R21 Rash and other nonspecific skin eruption (principal); I10 Essential (primary) hypertension | CPT/HCPCS: 99282 ==

== ENCOUNTER 2020-05-13 12:26 | Emergency (ER) | payer MEDICARE ==
--- NOTE | 2020-05-13 14:06 | RAD ---
RIGHT ANKLE THREE VIEWS: 05/13/20 HISTORY: Fell on ice with ankle injury. There is an obliquely oriented essentially nondisplaced distal radial fracture. Mild arthritic change s of the ankle joints are seen. No medial malleolar fracture is noted. Calcaneal spurs are present. IMPRESSION: Nondisplaced distal fibular fracture. POS: GILBERTO
--- NOTE | 2020-05-13 14:13 | RAD ---
RIGHT FOOT THREE VIEWS: 05/13/20 HISTORY: Fell on ice with foot injury. Marked arthritic changes of the first metatarsophalangeal joint and interphalangeal joint of the grea t toe are noted. The distal fibular fracture noted in the previous ankle film is again seen. No othe r findings. IMPRESSION: Distal fibular fracture nondisplaced. POS: GILBERTO
[2020-05-13] MEDS ORDERED: Acetaminophen 500 MG TAB ONE (14:40)
== END 2020-05-13 15:07 | disposition home or self-care (01) ==
LOC: ERS 12:26
DX: S82.831A Other fracture of upper and lower end of right fibula, initial encounter for closed fracture (principal); I10 Essential (primary) hypertension; W00.0XXA Fall on same level due to ice and snow, initial encounter

== ENCOUNTER 2020-09-04 09:33 | Emergency (ER) | payer MEDICARE ==
[2020-09-04 10:41] LABS: Bilirubin Negative (Negative); Blood, Urine Large (Negative); Glucose, Urine (Dipstick) Negative (Negative); Ketone, Urine Negative (Negative); Leukocyte Moderate (Negative); Nitrite Positive (Negative); Protein, Urine (Dipstick) 100 mg/dL (Neg-Trace); Urobilinogen 0.2 mg/dL (Less than 2); pH, Urine 5.5 (5.0-9.0)
[2020-09-04 10:47] LABS: Clarity Cloudy (Clear)
[2020-09-04 10:48] LABS: Specific Gravity, Urine 1.018 (1.002-1.036)
[2020-09-04 10:50] LABS: #Basophils 0.1 thou/uL (0.0-0.2); #Eosinphils 0.3 thou/uL (0.0-0.7); #Lymphocytes 1.1 thou/uL (1.20-3.40); #Monocytes 0.9 thou/uL (0.11-0.59); #Neutrophils 6.8 thou/uL (1.40-6.50); %Basophils 0.6 % (0.0-1.0); %Eosinophils 3.1 % (0.0-10.0); %Lymphocytes 12.1 % (21.0-51.0); %Monocytes 9.4 % (0.0-10.0); %Neutrophils 74.7 % (42.0-75.0); Hemoglobin 14.1 g/dL (14.0-18.0); Mean Corpuscular HGB CONC 33.6 g/dL (32.0-36.0); Mean Corpuscular Hemoglobin 33.9 pg (27.0-31.0); Mean Platelet Volume 6.6 fL (7.4-10.4); Platelet Count 224 thou/uL (130-400); RBC Distribution Width 12.2 % (11.5-14.5); Red Blood Cell (RBC) Count 4.16 mill/uL (4.70-6.10); White Blood Cell (WBC) Count 9.1 thou/uL (4.8-10.8)
[2020-09-04 11:05] LABS: ALT (SGPT) 10 U/L (8-55); AST (SGOT) 14 U/L (5-34); Albumin 4.1 g/dL (3.4-4.8); Alkaline Phosphatase 84 U/L (40-110); Anion Gap 15 mmol/L (10-20); BUN (Urea Nitrogen) 21 mg/dL (8.4-25.7); Bilirubin, Total 0.6 mg/dL (0.2-1.2); Calc. Creatinine Clearance 0 mL/min (70-130); Calcium 10.4 mg/dL (7.8-10.44); Carbon Dioxide 23 mmol/L (23-31); Chloride 105 mmol/L (98-107); Globulin 3.5 g/dL (2.4-3.5); Glucose 107 mg/dL (83-110); Protein, Total 7.6 g/dL (5.8-8.1); Sodium 139 mmol/L (136-145)
[2020-09-04 11:14] LABS: Bacteria/HPF 1+ HPF (None Seen); RBC/HPF 21-50 HPF (0-3); Squamous Epithelial 0-3 HPF (0-3)
[2020-09-04] MEDS ORDERED: cefTRIAXone\\ROCEPHIN 1 GM VIAL ONE (11:44)
[2020-09-04] MEDS ORDERED: Lidocaine 1% PF 5 ML VIAL ONE (11:45)
[2020-09-04] MEDS ORDERED: Nitrofurantoin Monohyd/M-Cryst 100 MG CAP PO SCH (12:45)
== END 2020-09-04 13:10 | disposition home or self-care (01) ==
LOC: ERS 09:33
DX: N39.0 Urinary tract infection, site not specified (principal); I10 Essential (primary) hypertension
CPT/HCPCS: 36415; 80053; 81003; 81015; 85025; 87077; 87086; 87186; 96372; 99283; J0696

== ENCOUNTER 2020-09-08 16:17 | Emergency (ER) | payer MEDICARE ==
[2020-09-08 17:16] LABS: #Basophils 0.1 thou/uL (0.0-0.2); #Eosinphils 0.3 thou/uL (0.0-0.7); #Lymphocytes 1.2 thou/uL (1.20-3.40); #Monocytes 0.9 thou/uL (0.11-0.59); #Neutrophils 4.6 thou/uL (1.40-6.50); %Basophils 1.3 % (0.0-1.0); %Eosinophils 4.5 % (0.0-10.0); %Lymphocytes 16.5 % (21.0-51.0); %Monocytes 12.7 % (0.0-10.0); Hemoglobin 14.2 g/dL (14.0-18.0); Mean Corpuscular HGB CONC 34.7 g/dL (32.0-36.0); Mean Corpuscular Hemoglobin 34.9 pg (27.0-31.0); Platelet Count 209 thou/uL (130-400); RBC Distribution Width 11.7 % (11.5-14.5); Red Blood Cell (RBC) Count 4.07 mill/uL (4.70-6.10)
[2020-09-08 17:39] LABS: ALT (SGPT) 10 U/L (8-55); AST (SGOT) 19 U/L (5-34); Albumin 3.6 g/dL (3.4-4.8); Alkaline Phosphatase 71 U/L (40-110); Anion Gap 14 mmol/L (10-20); BUN (Urea Nitrogen) 39 mg/dL (8.4-25.7); Bilirubin, Total 0.5 mg/dL (0.2-1.2); Calc. Creatinine Clearance 0 mL/min (70-130); Calcium 9.7 mg/dL (7.8-10.44); Carbon Dioxide 25 mmol/L (23-31); Chloride 104 mmol/L (98-107); Globulin 3.8 g/dL (2.4-3.5); Glucose 102 mg/dL (83-110); Potassium 3.6 mmol/L (3.5-5.1); Protein, Total 7.4 g/dL (5.8-8.1); Sodium 139 mmol/L (136-145)
[2020-09-08 18:14] LABS: Bilirubin Negative (Negative); Blood, Urine 3+ (Negative); Clarity Turbid (Clear); Glucose, Urine (Dipstick) Normal (Negative); Ketone, Urine Negative (Negative); Leukocyte 250 Leu/uL (Negative); Nitrite Negative (Negative); Protein, Urine (Dipstick) 20 mg/dL (Neg-Trace); RBC/HPF Greater than 50 HPF (0-3); Specific Gravity, Urine 1.016 (1.002-1.036); Squamous Epithelial None Seen HPF (0-3); Urobilinogen Normal mg/dL (Less than 2); WBC/HPF 21-50 HPF (0-3)
[2020-09-08 18:16] LABS: Bacteria/HPF 1+ HPF (None Seen)
== END 2020-09-08 18:31 | disposition home or self-care (01) ==
LOC: ERS 16:17
DX: N39.0 Urinary tract infection, site not specified (principal); I10 Essential (primary) hypertension; Z85.46 Personal history of malignant neoplasm of prostate
CPT/HCPCS: 36415; 80053; 81003; 81015; 83605; 85025; 87040; 87086; 99283

== ENCOUNTER 2021-07-25 11:21 | Inpatient (IN) | payer MEDICARE ==
[2021-07-25] MEDS ORDERED: Morphine 2 MG/ML VIAL ONE (13:07)
[2021-07-25] MEDS ORDERED: Clindamycin/D5W 600 mg/50 ml Premix Bag ONE (13:07)
[2021-07-25 13:25] LABS: #Basophils 0.1 thou/uL (0.0-0.2); #Eosinphils 0.8 thou/uL (0.0-0.7); #Lymphocytes 1.3 thou/uL (1.20-3.40); #Monocytes 0.8 thou/uL (0.11-0.59); #Neutrophils 4.5 thou/uL (1.40-6.50); %Basophils 1.1 % (0.0-1.0); %Eosinophils 11.2 % (0.0-10.0); %Monocytes 10.2 % (0.0-10.0); %Neutrophils 60.5 % (42.0-75.0); Hemoglobin 14.1 g/dL (14.0-18.0); Platelet Count 215 thou/uL (130-400); RBC Distribution Width 12.5 % (11.5-14.5); Red Blood Cell (RBC) Count 4.04 mill/uL (4.70-6.10); White Blood Cell (WBC) Count 7.4 thou/uL (4.8-10.8)
[2021-07-25] MEDS ORDERED: Clindamycin/D5W 300 MG in Premix Bag 1 BAG IVPB SCH (13:30)
[2021-07-25 13:42] LABS: ALT (SGPT) 7 U/L (8-55); AST (SGOT) 15 U/L (5-34); Albumin 4.3 g/dL (3.4-4.8); Alkaline Phosphatase 92 U/L (40-110); Anion Gap 15 mmol/L (10-20); BUN (Urea Nitrogen) 26 mg/dL (8.4-25.7); Bilirubin, Total 1.2 mg/dL (0.2-1.2); Calc. Creatinine Clearance 0 mL/min (70-130); Calcium 9.7 mg/dL (7.8-10.44); Carbon Dioxide 24 mmol/L (23-31); Chloride 101 mmol/L (98-107); Globulin 3.4 g/dL (2.4-3.5); Glucose 110 mg/dL (83-110); Potassium 3.5 mmol/L (3.5-5.1); Protein, Total 7.7 g/dL (5.8-8.1); Sodium 136 mmol/L (136-145)
[2021-07-25 14:19] LABS: Bilirubin Negative (Negative); Blood, Urine Negative (Negative); Clarity Clear (Clear); Glucose, Urine (Dipstick) Normal (Negative); Ketone, Urine Negative (Negative); Leukocyte Negative Leu/uL (Negative); Nitrite Negative (Negative); Protein, Urine (Dipstick) 20 mg/dL (Neg-Trace); Specific Gravity, Urine 1.015 (1.002-1.036); Urobilinogen Normal mg/dL (Less than 2)
[2021-07-25] MEDS ORDERED: Bupivacaine PF 0.5% 30 ML VIAL ONE (14:52)
[2021-07-25] MEDS ORDERED: Neomycin-Polymyxin 1 ML AMP ONE (14:52)
[2021-07-25] MEDS ORDERED: Bacitracin Zinc Ointment 30 gm TUBE ONE (14:52)
[2021-07-25 15:06] LABS: SARS-CoV-2 NAA Rapid Test Not Detected (NotDetected)
[2021-07-25] MEDS ORDERED: fentaNYL Citrate/PF 100 MCG/2 ML SYRINGE ONE (15:15)
[2021-07-25] MEDS ORDERED: Morphine 4 MG/ML VIAL SLOW IVP PRN (15:30)
[2021-07-25] MEDS ORDERED: Bisacodyl 10 MG SUPP PR PRN (15:30)
[2021-07-25] MEDS ORDERED: Acetaminophen 325 MG TAB PO PRN (15:30)
[2021-07-25] MEDS ORDERED: TETANUS AND DIPHTHERIA TOX/PF 0.5 ML DISP.SYRIN IM SCH (15:30)
[2021-07-25] MEDS ORDERED: Promethazine HCl 25 MG/ML VIAL IM PRN (15:30)
[2021-07-25] MEDS ORDERED: HYDROcodone/Acetaminophen 5/325 mg Tablet PO PRN (15:30)
[2021-07-25] MEDS ORDERED: Ondansetron PF 4 MG/2 ML Vial IVP PRN (15:30)
[2021-07-25] MEDS ORDERED: Milk Of Magnesia 30 ML UDCUP PO PRN (15:30)
[2021-07-25] MEDS ORDERED: Communication Order-Pharmacy FS SCH (15:30)
[2021-07-25] MEDS ORDERED: Meperidine HCl/PF 25 MG/ML VIAL IM PRN (15:36)
[2021-07-25] MEDS ORDERED: Ondansetron PF 4 MG/2 ML Vial ONE (15:38)
[2021-07-25] MEDS ORDERED: PROPOFOL 200 MG/20 ML VIAL ONE (15:38)
[2021-07-25] MEDS ORDERED: Lidocaine 1% PF 5 ML VIAL ONE (15:38)
[2021-07-25 18:09] VITALS: BMI 26.9
[2021-07-25] MEDS: Aspirin 81 mg Enteric Coated Tablet PO SCH (20:59)
[2021-07-26] MEDS: HYDROcodone/Acetaminophen 10/325 mg Tablet PO PRN ×2 (01:41→08:22)
[2021-07-26] MEDS: Vancomycin 1 GM in Premix Bag 1 BAG IVPB SCH ×2 (04:25→15:44)
[2021-07-26] MEDS: traMADol HCl 50 MG TAB PO PRN (04:50)
[2021-07-26 06:03] LABS: #Basophils 0.1 thou/uL (0.0-0.2); #Lymphocytes 1.4 thou/uL (1.20-3.40); #Monocytes 0.8 thou/uL (0.11-0.59); #Neutrophils 4.2 thou/uL (1.40-6.50); %Basophils 1.3 % (0.0-1.0); %Lymphocytes 18.6 % (21.0-51.0); %Monocytes 11.2 % (0.0-10.0); %Neutrophils 55.9 % (42.0-75.0); Hemoglobin 13.1 g/dL (14.0-18.0); Mean Corpuscular HGB CONC 33.7 g/dL (32.0-36.0); Mean Corpuscular Hemoglobin 35.4 pg (27.0-31.0); Platelet Count 205 thou/uL (130-400); RBC Distribution Width 12.5 % (11.5-14.5); Red Blood Cell (RBC) Count 3.71 mill/uL (4.70-6.10); White Blood Cell (WBC) Count 7.5 thou/uL (4.8-10.8)
[2021-07-26] MEDS: Aspirin 81 mg Enteric Coated Tablet PO SCH ×2 (08:20→20:08)
[2021-07-26] MEDS: metFORMIN XR 500 MG TAB PO SCH (08:22)
[2021-07-26] MEDS: Allopurinol 100 MG TAB PO SCH (08:22)
[2021-07-26] MEDS: Fentanyl 100 MCG/2 ML VIAL SLOW IVP PRN ×2 (18:02→20:08)
[2021-07-26] MEDS: XTANDI 40 MG PO SCH (19:00)
[2021-07-27] MEDS: HYDROcodone/Acetaminophen 10/325 mg Tablet PO PRN (02:07)
[2021-07-27] MEDS: Vancomycin 1 GM in Premix Bag 1 BAG IVPB SCH ×2 (03:40→16:05)
[2021-07-27] MEDS: Fentanyl 100 MCG/2 ML VIAL SLOW IVP PRN (04:57)
[2021-07-27] MEDS: Allopurinol 100 MG TAB PO SCH (08:06)
[2021-07-27] MEDS: Aspirin 81 mg Enteric Coated Tablet PO SCH ×2 (08:06→19:51)
[2021-07-27] MEDS: metFORMIN XR 500 MG TAB PO SCH (08:06)
[2021-07-27] MEDS: traMADol HCl 50 MG TAB PO PRN (19:50)
[2021-07-27] MEDS: XTANDI 40 MG PO SCH (19:51)
[2021-07-28] MEDS: Vancomycin 1 GM in Premix Bag 1 BAG IVPB SCH ×2 (04:14→15:44)
[2021-07-28] MEDS: Allopurinol 100 MG TAB PO SCH (09:20)
[2021-07-28] MEDS: metFORMIN XR 500 MG TAB PO SCH (09:20)
[2021-07-28] MEDS: Aspirin 81 mg Enteric Coated Tablet PO SCH ×2 (09:20→20:10)
[2021-07-28] MEDS ORDERED: Dexmedetomidine 200 MCG/2 ML VIAL ONE (09:31)
[2021-07-28] MEDS ORDERED: fentaNYL Citrate/PF 100 MCG/2 ML SYRINGE ONE (09:31)
[2021-07-28] MEDS ORDERED: Neomycin-Polymyxin 1 ML AMP ONE (10:11)
[2021-07-28] MEDS ORDERED: Thrombin 5000 UNITS/5 ML VIAL ONE (10:11)
[2021-07-28] MEDS ORDERED: Bupivacaine PF 0.5% 30 ML VIAL ONE (10:11)
[2021-07-28] MEDS ORDERED: Bacitracin Zinc Ointment 30 gm TUBE ONE (10:11)
[2021-07-28] MEDS ORDERED: ceFAZolin (BATCH) 2 GM/100 ML BAG ONE (10:22)
[2021-07-28] MEDS ORDERED: PROPOFOL 200 MG/20 ML VIAL ONE (10:31)
[2021-07-28] MEDS ORDERED: Lidocaine 1% PF 5 ML VIAL ONE (10:31)
[2021-07-28] MEDS ORDERED: Ondansetron PF 4 MG/2 ML Vial ONE (10:31)
[2021-07-28] MEDS ORDERED: Piperacillin/Tazobactam 4.5 GM in Sodium Chloride 0.9% 100 ML IVPB SCH ×2 (11:00→23:00)
[2021-07-28] MEDS ORDERED: Gentamicin Sulfate 80 MG in Premix Bag 1 BAG IVPB SCH (11:00)
[2021-07-28] MEDS: Gentamicin Sulfate 80 MG in Premix Bag 1 BAG IVPB SCH (18:26)
[2021-07-28] MEDS: XTANDI 40 MG PO SCH (20:09)
[2021-07-29] MEDS: Gentamicin Sulfate 80 MG in Premix Bag 1 BAG IVPB SCH (02:43)
[2021-07-29] MEDS: Vancomycin 1 GM in Premix Bag 1 BAG IVPB SCH (04:16)
[2021-07-29 08:04] VITALS: TEMP 98.2
[2021-07-29] MEDS: Aspirin 81 mg Enteric Coated Tablet PO SCH (09:10)
[2021-07-29] MEDS: Allopurinol 100 MG TAB PO SCH (09:10)
[2021-07-29] MEDS: metFORMIN XR 500 MG TAB PO SCH (09:11)
[2021-07-29 11:40] VITALS: BP 149/80
== END 2021-07-29 12:14 | disposition home or self-care (01) | DRG 513 ==
LOC: ERS 11:21 → SDC 14:50 → T4-B 15:30
PROVIDERS: ADMIT Orthopaedic Surgery Hand Surgery; ATTEND Orthopaedic Surgery Hand Surgery
PROC: 0LB Tendons, Excision (ICD-10-PCS; principal; 2021-07-25)
PROC: 0LB Tendons, Excision (ICD-10-PCS; 2021-07-28)
DX: M65.841 Other synovitis and tenosynovitis, right hand (principal); L02.511 Cutaneous abscess of right hand; Z20.822 Contact with and (suspected) exposure to COVID-19; Z79.82 Long term (current) use of aspirin; Z79.899 Other long term (current) drug therapy
CPT/HCPCS: 36415; 36416; 71045; 80053; 81003; 85025; 86140; 87070; 87077; 87186; 87205; 93005; J0690; J1580; J2270; J2405; J2543; J2704; J3010; J3370; J3490; S0020; U0002

== ENCOUNTER 2021-09-22 11:02 | Emergency (ER) | payer MEDICARE | END 2021-09-22 11:47 | disposition home or self-care (01) | LOC: ERS 11:02 | DX: R63.0 Anorexia (principal); I10 Essential (primary) hypertension; E11.9 Type 2 diabetes mellitus without complications; Z85.46 Personal history of malignant neoplasm of prostate; Z79.82 Long term (current) use of aspirin; Z79.899 Other long term (current) drug therapy | CPT/HCPCS: 99283 ==

== ENCOUNTER 2021-10-01 21:49 | Emergency (ER) | payer MEDICARE ==
[2021-10-01 22:57] LABS: #Basophils 0.1 thou/uL (0.0-0.2); #Eosinphils 0.7 thou/uL (0.0-0.7); #Lymphocytes 1.6 thou/uL (1.20-3.40); #Monocytes 0.7 thou/uL (0.11-0.59); #Neutrophils 2.9 thou/uL (1.40-6.50); %Basophils 1.1 % (0.0-1.0); %Eosinophils 12.4 % (0.0-10.0); %Monocytes 11.5 % (0.0-10.0); Mean Corpuscular HGB CONC 33.7 g/dL (32.0-36.0); Mean Corpuscular Hemoglobin 35.2 pg (27.0-31.0); Mean Platelet Volume 6.4 fL (7.4-10.4); Platelet Count 254 thou/uL (130-400); RBC Distribution Width 12.6 % (11.5-14.5); Red Blood Cell (RBC) Count 3.97 mill/uL (4.70-6.10)
[2021-10-01 23:22] LABS: ALT (SGPT) 7 U/L (8-55); AST (SGOT) 13 U/L (5-34); Albumin 3.8 g/dL (3.4-4.8); Alkaline Phosphatase 81 U/L (40-110); Anion Gap 20 mmol/L (10-20); BUN (Urea Nitrogen) 26 mg/dL (8.4-25.7); Bilirubin, Total 0.3 mg/dL (0.2-1.2); Calc. Creatinine Clearance 0 mL/min (70-130); Calcium 9.9 mg/dL (7.8-10.44); Carbon Dioxide 20 mmol/L (23-31); Chloride 103 mmol/L (98-107); Estimated GFR 58; Globulin 3.5 g/dL (2.4-3.5); Glucose 87 mg/dL (83-110); Potassium 3.7 mmol/L (3.5-5.1); Protein, Total 7.3 g/dL (5.8-8.1); Sodium 139 mmol/L (136-145)
[2021-10-02 00:14] LABS: Bilirubin Negative (Negative); Blood, Urine Negative (Negative); Clarity Clear (Clear); Glucose, Urine (Dipstick) Normal (Negative); Ketone, Urine Negative (Negative); Leukocyte Negative Leu/uL (Negative); Nitrite Negative (Negative); Protein, Urine (Dipstick) 20 mg/dL (Neg-Trace); Specific Gravity, Urine 1.018 (1.002-1.036); Urobilinogen Normal mg/dL (Less than 2)
== END 2021-10-02 01:35 | disposition home or self-care (01) ==
LOC: ERS 21:49
DX: T45.1X1A Poisoning by antineoplastic and immunosuppressive drugs, accidental (unintentional), initial encounter (principal); I10 Essential (primary) hypertension; R73.03 Prediabetes; Z79.899 Other long term (current) drug therapy; Z79.82 Long term (current) use of aspirin
CPT/HCPCS: 36415; 80053; 81003; 84484; 85025; 93005

== ENCOUNTER 2021-10-18 12:33 | Emergency (ER) | payer MEDICARE ==
[2021-10-18 13:10] LABS: #Eosinphils 0.1 thou/uL (0.0-0.7); #Lymphocytes 1.1 thou/uL (1.20-3.40); #Monocytes 0.5 thou/uL (0.11-0.59); #Neutrophils 1.8 thou/uL (1.40-6.50); %Basophils 0.3 % (0.0-1.0); %Eosinophils 3.9 % (0.0-10.0); %Lymphocytes 30.8 % (21.0-51.0); %Monocytes 13.8 % (0.0-10.0); %Neutrophils 51.1 % (42.0-75.0); Hemoglobin 14.3 g/dL (14.0-18.0); Mean Corpuscular HGB CONC 33.3 g/dL (32.0-36.0); Mean Corpuscular Hemoglobin 34.2 pg (27.0-31.0); Mean Platelet Volume 6.8 fL (7.4-10.4); Platelet Count 226 thou/uL (130-400); RBC Distribution Width 12.5 % (11.5-14.5); Red Blood Cell (RBC) Count 4.18 mill/uL (4.70-6.10); White Blood Cell (WBC) Count 3.6 thou/uL (4.8-10.8)
[2021-10-18 13:33] LABS: ALT (SGPT) Less than 7 U/L (8-55); AST (SGOT) 16 U/L (5-34); Albumin 3.9 g/dL (3.4-4.8); Alkaline Phosphatase 78 U/L (40-110); Anion Gap 16 mmol/L (10-20); BUN (Urea Nitrogen) 20 mg/dL (8.4-25.7); Bilirubin, Total 0.8 mg/dL (0.2-1.2); Calc. Creatinine Clearance 0 mL/min (70-130); Carbon Dioxide 19 mmol/L (23-31); Chloride 105 mmol/L (98-107); Estimated GFR 75; Globulin 3.7 g/dL (2.4-3.5); Glucose 111 mg/dL (83-110); Lipase 28 U/L (8-78); Potassium 3.7 mmol/L (3.5-5.1); Protein, Total 7.6 g/dL (5.8-8.1); Sodium 136 mmol/L (136-145)
[2021-10-18 15:11] LABS: Bacteria/HPF None Seen HPF (None Seen); Bilirubin Negative (Negative); Blood, Urine Negative (Negative); Clarity Clear (Clear); Glucose, Urine (Dipstick) Normal (Negative); Ketone, Urine Negative (Negative); Leukocyte Negative Leu/uL (Negative); Nitrite Negative (Negative); Protein, Urine (Dipstick) 30 mg/dL (Neg-Trace); RBC/HPF 0-3 HPF (0-3); Specific Gravity, Urine 1.021 (1.002-1.036); Squamous Epithelial None Seen HPF (0-3); Urobilinogen Normal mg/dL (Less than 2); WBC/HPF 0-3 HPF (0-3)
== END 2021-10-18 18:33 | disposition home or self-care (01) ==
LOC: ERS 12:33
DX: R63.0 Anorexia (principal); R63.4 Abnormal weight loss; I10 Essential (primary) hypertension; Z79.899 Other long term (current) drug therapy; Z79.82 Long term (current) use of aspirin
CPT/HCPCS: 36415; 80053; 81003; 81015; 83690; 83880; 85025; 99284

== ENCOUNTER 2022-01-01 10:27 | Inpatient (IN) | payer MEDICARE ==
[2022-01-01 11:04] LABS: #Basophils 0.1 thou/uL (0.0-0.2); #Eosinphils 0.3 thou/uL (0.0-0.7); #Lymphocytes 1.2 thou/uL (1.20-3.40); #Monocytes 0.5 thou/uL (0.11-0.59); %Basophils 1.1 % (0.0-1.0); %Lymphocytes 24.1 % (21.0-51.0); %Monocytes 10.6 % (0.0-10.0); %Neutrophils 58.2 % (42.0-75.0); Mean Corpuscular HGB CONC 32.5 g/dL (32.0-36.0); Mean Corpuscular Hemoglobin 34.2 pg (27.0-31.0); Mean Platelet Volume 6.6 fL (7.4-10.4); Platelet Count 216 thou/uL (130-400); RBC Distribution Width 12.2 % (11.5-14.5); Red Blood Cell (RBC) Count 4.09 mill/uL (4.70-6.10); White Blood Cell (WBC) Count 5.1 thou/uL (4.8-10.8)
[2022-01-01 11:34] LABS: ALT (SGPT) Less than 7 U/L (8-55); AST (SGOT) 26 U/L (5-34); Acetaminophen Less than 10.0 mcg/mL (10.0-30.0); Albumin 3.9 g/dL (3.4-4.8); Alcohol Less than 10 mg/dL (Less than 10); Alkaline Phosphatase 91 U/L (40-110); Anion Gap 19 mmol/L (10-20); BUN (Urea Nitrogen) 25 mg/dL (8.4-25.7); Bilirubin, Total 0.4 mg/dL (0.2-1.2); Calc. Creatinine Clearance 0 mL/min (70-130); Calcium 9.6 mg/dL (7.8-10.44); Carbon Dioxide 21 mmol/L (23-31); Chloride 99 mmol/L (98-107); Estimated GFR 46; Globulin 3.8 g/dL (2.4-3.5); Glucose 97 mg/dL (83-110); Lipase 45 U/L (8-78); Potassium 4.9 mmol/L (3.5-5.1); Protein, Total 7.7 g/dL (5.8-8.1); Salicylate Less than 8.0 mg/dL (15.0-30.0); Sodium 134 mmol/L (136-145)
[2022-01-01 11:42] LABS: INR-International Normal Ratio 0.9; Prothrombin Time 12.3 sec (12.0-14.7)
[2022-01-01 11:43] LABS: PTT 28.1 sec (22.9-36.1)
[2022-01-01 11:58] LABS: Bilirubin Negative (Negative); Blood, Urine Negative (Negative); Clarity Clear (Clear); Glucose, Urine (Dipstick) Normal (Negative); Ketone, Urine Negative (Negative); Leukocyte Negative Leu/uL (Negative); Nitrite Negative (Negative); Protein, Urine (Dipstick) 20 mg/dL (Neg-Trace); Specific Gravity, Urine 1.014 (1.002-1.036); Urobilinogen Normal mg/dL (Less than 2)
[2022-01-01 12:41] LABS: Amphetamine Not Detected (NotDetected); Barbiturates Screen Not Detected (NotDetected); Benzodiazepine Screen Not Detected (NotDetected); Cocaine Metabolite Screen Not Detected (NotDetected); Methadone Not Detected (NotDetected); Methamphetamine Not Detected (NotDetected); Opiate Screen Not Detected (NotDetected); Oxycodone Screen Not Detected (NotDetected); Phencyclidine (PCP) Not Detected (NotDetected); THC/Cannabinoid Screen Not Detected (NotDetected); Tricyclic Screen Not Detected (NotDetected)
[2022-01-01] MEDS ORDERED: TETANUS, DIPHTHERIA TOX,ADULT (TDVAX) 0.5 ML VIAL IM ONE (13:03)
[2022-01-01] MEDS ORDERED: Dextrose 50% Abboject 50 ML SYRINGE SLOW IVP PRN (13:03)
[2022-01-01] MEDS ORDERED: Ondansetron PF 4 MG/2 ML Vial IVP PRN (13:03)
[2022-01-01] MEDS ORDERED: Dextrose 5% in Water 1,000 ML IV PRN (13:03)
[2022-01-01] MEDS ORDERED: hydrALAZINE 20 MG/ML VIAL SLOW IVP PRN (13:03)
[2022-01-01] MEDS ORDERED: Sodium Chloride 0.9% 1,000 ML IV SCH (13:15)
[2022-01-01] MEDS: Acetaminophen 500 MG TAB PO SCH (16:00)
[2022-01-01] MEDS ORDERED: Boostrix 0.5 ML (Tdap) VIAL (>/=7 yrs of age) ONE (16:50)
[2022-01-01] MEDS ORDERED: Acetaminophen 500 MG TAB ONE (16:50)
[2022-01-01] MEDS: Oxazepam 10 MG CAP PO SCH (17:56)
[2022-01-01] MEDS ORDERED: Oxazepam 10 MG CAP PO SCH ×2 (18:00)
[2022-01-01] MEDS ORDERED: Famotidine/PF 20 mg/2ml Vial SLOW IVP SCH (21:00)
[2022-01-01] MEDS: Senokot S 8.6-50 MG TAB PO SCH (21:00)
[2022-01-01 22:35] VITALS: BMI 25.1
[2022-01-02] MEDS: Acetaminophen 500 MG TAB PO SCH ×6 (00:28→23:36)
[2022-01-02] MEDS: Oxazepam 10 MG CAP PO SCH ×2 (06:03→19:34)
[2022-01-02] MEDS ORDERED: FLU VACC QS2022-23(65YR UP)/PF 240 MCG/0.7 ML SYRINGE IM ONE (09:00)
[2022-01-02] MEDS: Folic Acid 1 MG TAB PO SCH (09:13)
[2022-01-02] MEDS: Polyethylene Glycol 3350 17 GM Packet PO SCH (09:13)
[2022-01-02] MEDS: Senokot S 8.6-50 MG TAB PO SCH ×2 (09:13→19:35)
[2022-01-02] MEDS: Thiamine 100 MG TAB PO SCH (09:13)
[2022-01-02] MEDS ORDERED: Melatonin 3 MG TAB PO SCH (20:45)
[2022-01-03] MEDS: Acetaminophen 500 MG TAB PO SCH ×3 (05:49→17:23)
[2022-01-03 06:21] LABS: #Eosinphils 0.3 thou/uL (0.0-0.7); #Lymphocytes 1.3 thou/uL (1.20-3.40); #Monocytes 0.7 thou/uL (0.11-0.59); #Neutrophils 4.1 thou/uL (1.40-6.50); %Basophils 0.5 % (0.0-1.0); %Lymphocytes 20.5 % (21.0-51.0); %Monocytes 11.2 % (0.0-10.0); %Neutrophils 63.8 % (42.0-75.0); Mean Corpuscular HGB CONC 35.2 g/dL (32.0-36.0); Mean Platelet Volume 6.3 fL (7.4-10.4); Platelet Count 182 thou/uL (130-400); RBC Distribution Width 11.8 % (11.5-14.5); Red Blood Cell (RBC) Count 3.79 mill/uL (4.70-6.10); White Blood Cell (WBC) Count 6.4 thou/uL (4.8-10.8)
[2022-01-03 06:54] LABS: Anion Gap 15 mmol/L (10-20); BUN (Urea Nitrogen) 23 mg/dL (8.4-25.7); Calc. Creatinine Clearance 44 mL/min (70-130); Calcium 9.6 mg/dL (7.8-10.44); Carbon Dioxide 26 mmol/L (23-31); Chloride 101 mmol/L (98-107); Estimated GFR 53; Glucose 92 mg/dL (83-110); Magnesium 2.1 mg/dL (1.6-2.6); Phosphorus 3.7 mg/dL (2.3-4.7); Potassium 3.6 mmol/L (3.5-5.1); Sodium 138 mmol/L (136-145)
[2022-01-03] MEDS: Losartan 25 MG TAB PO SCH (08:35)
[2022-01-03] MEDS: Oxazepam 10 MG CAP PO SCH (08:35)
[2022-01-03] MEDS: Senokot S 8.6-50 MG TAB PO SCH ×2 (08:36→20:22)
[2022-01-03] MEDS: Folic Acid 1 MG TAB PO SCH (08:36)
[2022-01-03] MEDS: Thiamine 100 MG TAB PO SCH (08:36)
[2022-01-03] MEDS: Polyethylene Glycol 3350 17 GM Packet PO SCH (08:36)
[2022-01-03] MEDS ORDERED: Sodium Chloride 0.9% 500 ML IV SCH (08:45)
[2022-01-03] MEDS ORDERED: Non-Formulary Item 1 EACH (Losartan Potassium [Losartan Potassium] 100 MG Tablet) PO SCH (09:00)
[2022-01-03] MEDS ORDERED: Sodium Chloride 0.9% 1,000 ML IV SCH (17:00)
[2022-01-03] MEDS: Melatonin 3 MG TAB PO SCH (20:21)
[2022-01-04] MEDS: Acetaminophen 500 MG TAB PO SCH ×4 (04:45→19:35)
[2022-01-04 06:59] LABS: #Eosinphils 0.2 thou/uL (0.0-0.7); #Monocytes 0.5 thou/uL (0.11-0.59); #Neutrophils 3.8 thou/uL (1.40-6.50); %Basophils 0.6 % (0.0-1.0); %Eosinophils 4.3 % (0.0-10.0); %Lymphocytes 18.3 % (21.0-51.0); %Monocytes 8.6 % (0.0-10.0); %Neutrophils 68.2 % (42.0-75.0); Hemoglobin 13.4 g/dL (14.0-18.0); Mean Corpuscular HGB CONC 32.5 g/dL (32.0-36.0); Mean Platelet Volume 6.3 fL (7.4-10.4); Platelet Count 189 thou/uL (130-400); RBC Distribution Width 11.9 % (11.5-14.5); Red Blood Cell (RBC) Count 3.93 mill/uL (4.70-6.10); White Blood Cell (WBC) Count 5.6 thou/uL (4.8-10.8)
[2022-01-04 07:22] LABS: Anion Gap 14 mmol/L (10-20); BUN (Urea Nitrogen) 21 mg/dL (8.4-25.7); Calc. Creatinine Clearance 60 mL/min (70-130); Calcium 9.2 mg/dL (7.8-10.44); Carbon Dioxide 23 mmol/L (23-31); Chloride 105 mmol/L (98-107); Estimated GFR 76; Glucose 91 mg/dL (83-110); Magnesium 1.7 mg/dL (1.6-2.6); Phosphorus 3.2 mg/dL (2.3-4.7); Potassium 3.8 mmol/L (3.5-5.1); Sodium 138 mmol/L (136-145)
[2022-01-04] MEDS: Dexamethasone 4 mg/ml Vial SLOW IVP SCH ×2 (09:22→16:31)
[2022-01-04] MEDS: Amlodipine 5 MG TAB PO SCH (09:27)
[2022-01-04] MEDS: Folic Acid 1 MG TAB PO SCH (09:28)
[2022-01-04] MEDS: Losartan 25 MG TAB PO SCH (09:28)
[2022-01-04] MEDS: Megestrol Acetate 400 MG/10 ML UDCUP PO SCH (09:28)
[2022-01-04] MEDS: Senokot S 8.6-50 MG TAB PO SCH ×2 (09:29→22:51)
[2022-01-04] MEDS: Thiamine 100 MG TAB PO SCH (09:29)
[2022-01-04] MEDS: Polyethylene Glycol 3350 17 GM Packet PO SCH (09:29)
[2022-01-04] MEDS: Pantoprazole 40 MG VIAL IVP SCH (09:31)
[2022-01-04] MEDS ORDERED: Oxazepam 10 MG CAP PO SCH (13:00)
[2022-01-04] MEDS ORDERED: Mirtazapine 15 MG Soltab PO SCH (21:00)
[2022-01-04] MEDS: Melatonin 3 MG TAB PO SCH (22:45)
[2022-01-05] MEDS: Acetaminophen 500 MG TAB PO SCH ×2 (00:30→06:18)
[2022-01-05] MEDS: Dexamethasone 4 mg/ml Vial SLOW IVP SCH (00:30)
[2022-01-05 05:58] LABS: #Eosinphils 0.2 thou/uL (0.0-0.7); #Lymphocytes 1.5 thou/uL (1.20-3.40); #Monocytes 0.7 thou/uL (0.11-0.59); #Neutrophils 3.5 thou/uL (1.40-6.50); %Basophils 0.7 % (0.0-1.0); %Eosinophils 3.8 % (0.0-10.0); %Lymphocytes 25.4 % (21.0-51.0); %Monocytes 11.5 % (0.0-10.0); %Neutrophils 58.7 % (42.0-75.0); Hemoglobin 13.1 g/dL (14.0-18.0); Mean Corpuscular Hemoglobin 35.7 pg (27.0-31.0); Mean Platelet Volume 6.3 fL (7.4-10.4); Platelet Count 212 thou/uL (130-400); RBC Distribution Width 11.9 % (11.5-14.5); Red Blood Cell (RBC) Count 3.65 mill/uL (4.70-6.10)
[2022-01-05 06:10] LABS: Anion Gap 14 mmol/L (10-20); BUN (Urea Nitrogen) 19 mg/dL (8.4-25.7); Calc. Creatinine Clearance 57 mL/min (70-130); Calcium 9.2 mg/dL (7.8-10.44); Carbon Dioxide 23 mmol/L (23-31); Chloride 106 mmol/L (98-107); Estimated GFR 72; Glucose 102 mg/dL (83-110); Magnesium 1.8 mg/dL (1.6-2.6); Potassium 3.3 mmol/L (3.5-5.1); Sodium 140 mmol/L (136-145)
[2022-01-05] MEDS ORDERED: Oxazepam 10 MG CAP PO SCH (09:00)
[2022-01-05] MEDS: Polyethylene Glycol 3350 17 GM Packet PO SCH (10:27)
[2022-01-05] MEDS: Senokot S 8.6-50 MG TAB PO SCH (10:29)
[2022-01-05] MEDS: Thiamine 100 MG TAB PO SCH (10:29)
[2022-01-05] MEDS: Amlodipine 5 MG TAB PO SCH (10:30)
[2022-01-05] MEDS: Folic Acid 1 MG TAB PO SCH (10:30)
[2022-01-05] MEDS: Losartan 25 MG TAB PO SCH (10:30)
[2022-01-05] MEDS: Pantoprazole 40 MG VIAL IVP SCH (10:30)
[2022-01-05] MEDS: Megestrol Acetate 400 MG/10 ML UDCUP PO SCH (10:30)
[2022-01-05 11:22] VITALS: BP 142/60; TEMP 98.8
== END 2022-01-05 11:40 | DRG 83 ==
LOC: ERS 10:27 → ERHOLD 13:06 → IMCU/EMU 20:03 → SURG A 01-02 18:26
PROVIDERS: ADMIT Surgery; ATTEND Surgery
PROC: HZ2ZZZZ Detoxification Services for Substance Abuse Treatment (ICD-10-PCS; principal; 2022-01-01)
DX: S06.6XAA Traumatic subarachnoid hemorrhage with loss of consciousness status unknown, initial encounter (principal); F10.239 Alcohol dependence with withdrawal, unspecified; N17.9 Acute kidney failure, unspecified; S12.110A Anterior displaced Type II dens fracture, initial encounter for closed fracture; Z20.822 Contact with and (suspected) exposure to COVID-19; Z23 Encounter for immunization; I10 Essential (primary) hypertension; F17.220 Nicotine dependence, chewing tobacco, uncomplicated; Z60.2 Problems related to living alone; E11.9 Type 2 diabetes mellitus without complications; M10.9 Gout, unspecified; R29.6 Repeated falls; R55 Syncope and collapse; S01.512A Laceration without foreign body of oral cavity, initial encounter; S01.81XA Laceration without foreign body of other part of head, initial encounter; W18.30XA Fall on same level, unspecified, initial encounter; R45.1 Restlessness and agitation; Z91.81 History of falling; Z90.79 Acquired absence of other genital organ(s); Z85.46 Personal history of malignant neoplasm of prostate; Z79.899 Other long term (current) drug therapy; Z79.82 Long term (current) use of aspirin; Z85.830 Personal history of malignant neoplasm of bone
CPT/HCPCS: 36415; 36416; 70450; 70486; 71045; 72125; 80048; 80053; 80306; 80307; 81003; 83690; 83735; 84100; 84484; 85025; 85610; 85730; 86850; 86900; 86901; 90714; 90715; 93005; 93306; 93880; C9113; G0390; J1100; J7030; J7050; U0003; U0005

== ENCOUNTER 2022-01-29 19:45 | Inpatient (IN) | payer MEDICARE ==
[2022-01-29 20:49] LABS: #Basophils 0.1 thou/uL (0.0-0.2); #Eosinphils 0.5 thou/uL (0.0-0.7); #Lymphocytes 1.7 thou/uL (1.20-3.40); #Monocytes 0.6 thou/uL (0.11-0.59); #Neutrophils 4.7 thou/uL (1.40-6.50); %Basophils 0.9 % (0.0-1.0); %Eosinophils 6.3 % (0.0-10.0); %Lymphocytes 22.5 % (21.0-51.0); %Monocytes 8.5 % (0.0-10.0); %Neutrophils 61.8 % (42.0-75.0); Hemoglobin 14.4 g/dL (14.0-18.0); Mean Corpuscular HGB CONC 34.1 g/dL (32.0-36.0); Mean Corpuscular Hemoglobin 35.1 pg (27.0-31.0); Platelet Count 214 10x3/uL (130-400); RBC Distribution Width 11.4 % (11.5-14.5); Red Blood Cell (RBC) Count 4.12 mill/uL (4.70-6.10); White Blood Cell (WBC) Count 7.6 10x3/uL (4.8-10.8)
[2022-01-29 21:00] LABS: ALT (SGPT) 7 U/L (8-55); AST (SGOT) 17 U/L (5-34); Alkaline Phosphatase 85 U/L (40-110); Anion Gap 13 mmol/L (10-20); BUN (Urea Nitrogen) 36 mg/dL (8.4-25.7); Bilirubin, Total 0.4 mg/dL (0.2-1.2); Calc. Creatinine Clearance 0 mL/min (70-130); Calcium 9.6 mg/dL (7.8-10.44); Carbon Dioxide 24 mmol/L (23-31); Chloride 108 mmol/L (98-107); Estimated GFR 49; Globulin 3.9 g/dL (2.4-3.5); Glucose 87 mg/dL (83-110); Potassium 4.2 mmol/L (3.5-5.1); Protein, Total 7.9 g/dL (5.8-8.1); Sodium 141 mmol/L (136-145)
[2022-01-29] MEDS ORDERED: Acetaminophen 325 MG TAB PO PRN (23:45)
[2022-01-29] MEDS ORDERED: Ondansetron ODT 4 MG TAB SL PRN (23:45)
[2022-01-29] MEDS ORDERED: Sodium Chloride 0.9% 1,000 ML IV SCH (23:45)
[2022-01-29] MEDS ORDERED: Ondansetron PF 4 MG/2 ML Vial IVP PRN (23:45)
[2022-01-30] MEDS ORDERED: Acetaminophen 650 MG Suppository PR PRN (06:54)
[2022-01-30] MEDS: Enoxaparin Sodium 40 MG/0.4 ML SYRINGE SC SCH (08:57)
[2022-01-30] MEDS ORDERED: FLU VACC QS2022-23(65YR UP)/PF 240 MCG/0.7 ML SYRINGE IM ONE (09:00)
[2022-01-30] MEDS ORDERED: Allopurinol 100 MG TAB PO SCH (09:30)
[2022-01-30] MEDS ORDERED: metFORMIN 500 MG TAB PO SCH (09:30)
[2022-01-30] MEDS ORDERED: Hydrochlorothiazide 25 MG TAB PO SCH (09:30)
[2022-01-30] MEDS ORDERED: Amlodipine 5 MG TAB PO SCH (09:30)
[2022-01-31 00:21] VITALS: BMI 25.0
[2022-01-31] MEDS: Enoxaparin Sodium 40 MG/0.4 ML SYRINGE SC SCH (08:09)
[2022-01-31] MEDS: Losartan 25 MG TAB PO SCH ×2 (08:09→08:16)
[2022-01-31] MEDS: Hydrochlorothiazide 25 MG TAB PO SCH (08:10)
[2022-01-31] MEDS: Allopurinol 100 MG TAB PO SCH (08:10)
[2022-01-31] MEDS: Amlodipine 5 MG TAB PO SCH (08:10)
[2022-01-31] MEDS: metFORMIN 500 MG TAB PO SCH (08:16)
[2022-01-31 10:06] LABS: #Eosinphils 0.3 thou/uL (0.0-0.7); #Lymphocytes 1.3 thou/uL (1.20-3.40); #Monocytes 0.5 thou/uL (0.11-0.59); #Neutrophils 3.5 thou/uL (1.40-6.50); %Basophils 0.7 % (0.0-1.0); %Eosinophils 5.3 % (0.0-10.0); %Lymphocytes 23.2 % (21.0-51.0); %Monocytes 8.7 % (0.0-10.0); %Neutrophils 62.1 % (42.0-75.0); Hemoglobin 13.2 g/dL (14.0-18.0); Mean Corpuscular Hemoglobin 35.2 pg (27.0-31.0); Mean Platelet Volume 6.9 fL (7.4-10.4); Platelet Count 207 10x3/uL (130-400); RBC Distribution Width 11.3 % (11.5-14.5); Red Blood Cell (RBC) Count 3.75 mill/uL (4.70-6.10); White Blood Cell (WBC) Count 5.6 10x3/uL (4.8-10.8)
[2022-01-31 10:16] LABS: Anion Gap 13 mmol/L (10-20); BUN (Urea Nitrogen) 31 mg/dL (8.4-25.7); Calc. Creatinine Clearance 43 mL/min (70-130); Calcium 9.2 mg/dL (7.8-10.44); Carbon Dioxide 21 mmol/L (23-31); Chloride 108 mmol/L (98-107); Estimated GFR 56; Glucose 127 mg/dL (83-110); Potassium 3.7 mmol/L (3.5-5.1); Sodium 138 mmol/L (136-145)
[2022-02-01] MEDS: Enoxaparin Sodium 40 MG/0.4 ML SYRINGE SC SCH (08:02)
[2022-02-01] MEDS: Losartan 25 MG TAB PO SCH ×2 (08:03→08:04)
[2022-02-01] MEDS: Amlodipine 5 MG TAB PO SCH (08:03)
[2022-02-01] MEDS: Hydrochlorothiazide 25 MG TAB PO SCH (08:03)
[2022-02-01] MEDS: metFORMIN 500 MG TAB PO SCH (08:03)
[2022-02-01] MEDS: Allopurinol 100 MG TAB PO SCH (08:03)
[2022-02-02 08:24] LABS: #Eosinphils 0.2 thou/uL (0.0-0.7); #Monocytes 0.5 thou/uL (0.11-0.59); #Neutrophils 3.6 thou/uL (1.40-6.50); %Basophils 0.5 % (0.0-1.0); %Eosinophils 4.3 % (0.0-10.0); %Lymphocytes 19.1 % (21.0-51.0); %Neutrophils 66.1 % (42.0-75.0); Hemoglobin 14.2 g/dL (14.0-18.0); Mean Corpuscular HGB CONC 35.3 g/dL (32.0-36.0); Mean Platelet Volume 6.6 fL (7.4-10.4); Platelet Count 209 10x3/uL (130-400); RBC Distribution Width 11.2 % (11.5-14.5); Red Blood Cell (RBC) Count 3.95 mill/uL (4.70-6.10); White Blood Cell (WBC) Count 5.4 10x3/uL (4.8-10.8)
[2022-02-02 08:42] LABS: ALT (SGPT) 8 U/L (8-55); AST (SGOT) 13 U/L (5-34); Albumin 3.7 g/dL (3.4-4.8); Alkaline Phosphatase 76 U/L (40-110); Anion Gap 15 mmol/L (10-20); BUN (Urea Nitrogen) 27 mg/dL (8.4-25.7); Bilirubin, Total 0.6 mg/dL (0.2-1.2); Calc. Creatinine Clearance 49 mL/min (70-130); Calcium 9.3 mg/dL (7.8-10.44); Carbon Dioxide 21 mmol/L (23-31); Chloride 106 mmol/L (98-107); Estimated GFR 65; Globulin 3.4 g/dL (2.4-3.5); Glucose 83 mg/dL (83-110); Potassium 3.6 mmol/L (3.5-5.1); Protein, Total 7.1 g/dL (5.8-8.1); Sodium 138 mmol/L (136-145)
[2022-02-02] MEDS: Enoxaparin Sodium 40 MG/0.4 ML SYRINGE SC SCH (09:36)
[2022-02-02] MEDS: Allopurinol 100 MG TAB PO SCH (09:36)
[2022-02-02] MEDS: Amlodipine 5 MG TAB PO SCH (09:36)
[2022-02-02] MEDS: Losartan 25 MG TAB PO SCH (09:36)
[2022-02-02 10:31] LABS: Hemoglobin A1c 4.8 % (4.0-6.0)
[2022-02-03] MEDS: Losartan 25 MG TAB PO SCH (07:56)
[2022-02-03] MEDS: Enoxaparin Sodium 40 MG/0.4 ML SYRINGE SC SCH (07:57)
[2022-02-03] MEDS: Allopurinol 100 MG TAB PO SCH (07:57)
[2022-02-03] MEDS: Amlodipine 5 MG TAB PO SCH (07:57)
[2022-02-04] MEDS: Enoxaparin Sodium 40 MG/0.4 ML SYRINGE SC SCH (08:08)
[2022-02-04] MEDS: Amlodipine 5 MG TAB PO SCH (08:09)
[2022-02-04] MEDS: Losartan 25 MG TAB PO SCH (08:09)
[2022-02-04] MEDS: Allopurinol 100 MG TAB PO SCH (08:09)
[2022-02-05] MEDS: Enoxaparin Sodium 40 MG/0.4 ML SYRINGE SC SCH (08:22)
[2022-02-05] MEDS: Amlodipine 5 MG TAB PO SCH (08:22)
[2022-02-05] MEDS: Losartan 25 MG TAB PO SCH (08:22)
[2022-02-05] MEDS: Allopurinol 100 MG TAB PO SCH (08:23)
[2022-02-06] MEDS: Allopurinol 100 MG TAB PO SCH (09:27)
[2022-02-06] MEDS: Enoxaparin Sodium 40 MG/0.4 ML SYRINGE SC SCH (09:27)
[2022-02-06] MEDS: Losartan 25 MG TAB PO SCH (09:27)
[2022-02-06] MEDS: Amlodipine 5 MG TAB PO SCH (09:27)
[2022-02-06 14:38] VITALS: BP 146/81; TEMP 98.4
== END 2022-02-06 14:10 | DRG 884 ==
LOC: ERS 19:45 → T4-B 22:48 → OBSVTOIN 01-30 15:57
PROVIDERS: ADMIT Internal Medicine; ATTEND Internal Medicine
DX: F03.90 Unspecified dementia, unspecified severity, without behavioral disturbance, psychotic disturbance, mood disturbance, and anxiety (principal); G93.40 Encephalopathy, unspecified; E44.0 Moderate protein-calorie malnutrition; S12.120A Other displaced dens fracture, initial encounter for closed fracture; N17.9 Acute kidney failure, unspecified; Z51.5 Encounter for palliative care; Z20.822 Contact with and (suspected) exposure to COVID-19; R29.6 Repeated falls; W19.XXXA Unspecified fall, initial encounter; N18.30 Chronic kidney disease, stage 3 unspecified; G93.89 Other specified disorders of brain; I12.9 Hypertensive chronic kidney disease with stage 1 through stage 4 chronic kidney disease, or unspecified chronic kidney disease; E11.22 Type 2 diabetes mellitus with diabetic chronic kidney disease; Z79.84 Long term (current) use of oral hypoglycemic drugs; Z79.899 Other long term (current) drug therapy; Z85.46 Personal history of malignant neoplasm of prostate; Z68.23 Body mass index [BMI] 23.0-23.9, adult
CPT/HCPCS: 36415; 36416; 70450; 72050; 72125; 80048; 80053; 83036; 84443; 85025; 90471; 90662; 93005; 96372; G0008; G0378; J1650; J7050; U0003; U0005